=== PATIENT | female | born 1960 | race Caucasian/White ===

== ENCOUNTER 2020-01-29 19:43 | Emergency (ER) | payer BC, SELFPAY ==
--- NOTE | ~2020-01-29 | CT_ITS ---
EXAMINATION: CT abdomen pelvis w con EXAM DATE: 01/29/2020 20:45 INDICATION: Low abdominal pain, extends the rectum. TECHNIQUE: Spiral CT of the abdomen and pelvis was performed following intravenous injection of 100 m L Omnipaque 350. Axial, coronal and sagittal images were reviewed. The dose-length product (DLP) fo r this examination was 1521.90 mGy-cm. The exposure was tailored according to patient size (auto mA exposure control), and iterative reconstruction (ASIR) was used as additional dose reduction techniqu e. Comparison is made to prior examination from 04/24/2018. FINDINGS: There are bilateral adrenal gland nodules, larger on the right measuring 1.2 cm, unchanged and consistent with hemangiomas. Liver, spleen, pancreas are unremarkable. Cholelithiasis. Scattere d bilateral nephrolithiasis, larger stone burden on the left with superior calyceal stone or stones m easuring 11 mm in diameter. No ureteral stones or hydronephrosis. The uterus is not identified and h as likely been surgically resected. There are probably small regions of bilateral renal cortical scar ring. The bladder is unremarkable. There is no retroperitoneal or pelvic lymphadenopathy. There i s mild scattered arteriosclerotic disease. The appendix is not identified. There is mild to moderate descending and sigmoid colonic diverticulos is. There is suspected to be mild inflammation along the sigmoid colon, possible acute uncomplicated diverticulitis. The stomach and small bowel are unremarkable. There is expected amount of colonic s tool. No free intraperitoneal gas. The heart is normal in size. There are no pericardial or pleu ral effusions. The lung bases are unremarkable. There are no osteoblastic or osteolytic lesions joy ntified. Mild lumbar levoscoliosis. IMPRESSION: 1. Probable mild acute uncomplicated sigmoid diverticulitis. 2. Bilateral nephrolithiasis. 3. Adrenal adenomas. Reviewed, dictated and finalized at location A.
[2020-01-29 19:50] VITALS: BP 156/113; PULSE 72; RESP 18; TEMP 36.9; O2SAT 97
--- NOTE | 2020-01-29 19:54 | ED.ABDPAIN ---
HPI - Abdominal Pain General Chief Complaint: Abdominal Pain Stated Complaint: abd pain Time Seen by Provider: 01/29/20 19:46 History of Present Illness HPI narrative: Patient presents with lower abdominal pain for 2 days. Primarily in the lower area and then sharp in the rectal area. She has never had anything like this before. She was diagnosed with diverticulitis in the past. She has had several lithotripsies for kidney stones. She gauges her pain at 7 out of 10. She says she has no drug allergies, despite the codeine on the record. She has no nausea or vomiting. Nothing makes the pain worse. Her last stool was this morning and it was soft. No blood in the stool. Surgical history of hysterectomy, oophorectomy, , lithotripsies. She does not smoke cigarettes, drink alcohol, or do drugs. He has a history of hypertension. MD elicited complaint: abdominal pain Pertinent past history: diverticulitis Onset (ago): day(s) Pain Consistency: constant Location: suprapubic and other (Rectal) Severity: moderate Radiation: none Migration to: no migration Exacerbating factors: nothing Relieving factors: nothing Related Data Allergies Allergy/AdvReac Type Severity Reaction Status Date / Time levofloxacin AdvReac Intermediate Nausea Verified 01/29/20 19:53 codeine AdvReac Unknown Nausea Verified 01/29/20 19:53 Review of Systems Review of Systems: Narrative: CONSTITUTIONAL: Denies fever, chills, or sweats. EYES: Denies visual changes, redness, or discharge. ENT: Denies rhinorrhea, congestion, sore throat, or otalgia. CARDIOVASCULAR: Denies chest pain, palpitations, or edema. RESPIRATORY: Denies cough or dyspnea. GASTROINTESTINAL: She has abdominal pain, right nausea, vomiting, or diarrhea. GENITOURINARY: Denies dysuria or hematuria. SKIN: Denies rash or itching. MUSCULOSKELETAL: Denies back pain, joint pain, or myalgia. NEUROLOGIC: Denies headache, numbness, or weakness. All systems reviewed & are unremarkable except as noted in HPI and below PMFSH Past Medical History Medical History Hypertension Kidney stones Mixed hyperlipidemia Morbid obesity Surgical History Surgical History (Updated 01/29/20 @ 19:59 by Adenike Flower MD) History of hysterectomy History of oophorectomy Social History Social History (Updated 01/29/20 @ 19:59 by Adenike Flower MD) Smoking status: Former smoker Alcohol intake: never Substance use: never Exam Narrative: Exam Narrative: GENERAL: Well-appearing, well-nourished, and in no acute distress. Overweight HEAD: Normocephalic, atraumatic. EYES: PERRLA and EOMI. ENT: Nares clear, no rhinorrhea or epistaxis. Mucous membranes moist. NECK: Supple. CHEST: Clear to auscultation. No respiratory distress. HEART: Regular rate and rhythm. No murmur heard. Normal peripheral pulses. ABDOMEN: Soft, nontender, nondistended, normal active bowel sounds. EXTREMITIES: Normal range of motion. No edema. SKIN: Warm, dry, no rash. NEURO: No focal deficits. Alert and oriented x3. PSYCH: Normal mood and affect. Const: General: no acute distress and alert Orientation/consciousness: patient oriented x3 Course Reevaluation(s) Reevaluation #1: Went in the room to tell the patient about her diverticulitis, and the IV antibiotics for it. She said the pain medicine only helped a little I will give her some more. Date: 01/29/20 Time: 21:59 Reevaluation #2: The patient is allergic to Levaquin, she said it messed with her ankles. I can give a cephalosporin with Flagyl as an alternative. Date: 01/30/20 Time: 00:52 Vital Signs Vital signs: Vital Signs Temperature 98.5 F 01/29/20 19:50 Pulse Rate 72 01/29/20 19:50 Respiratory Rate 18 01/29/20 19:50 Blood Pressure 156/113 H 01/29/20 19:50 Pulse Oximetry 97 01/29/20 19:50 Temperature 98.5 F 01/29/20 19:50 Pulse Rate 72 01/29/20 19:50 Respiratory Rate 18 01/29/20 19:
[2020-01-29] MEDS: MORPHINE SULFATE 2 MG/ML INJ IV PUSH (20:04)
[2020-01-29] MEDS: SODIUM CHLORIDE 0.9% IV 1,000 ML 999 ML IV CONT (20:04)
[2020-01-29 20:09] LABS: Basophils Absolute Auto 0.1 K/mm3 (0.0-0.1); Basophils Percent Auto 0.7 % (0.2-1.2); Eosinophils Absolute Auto 0.2 K/mm3 (0-0.3); Eosinophils Percent Auto 2.5 % (0-4.4); Hematocrit 42.4 % (37.0-47.0); Immature Granulocyte Absolute 0.01 K/mm3 (0.00-0.031); Immature Granulocyte Percent A 0.1 % (0-0.5); Lymphocytes Absolute Auto 2.67 K/mm3 (0.9-3.2); Lymphocytes Percent Auto 29.5 % (18.3-44.2); Mean Corpuscular Hemoglobin 29.4 pg (26-34); Mean Corpuscular Volume 89.1 fl (80-100); Mean Platelet Volume 10.4 fl (7.4-10.4); Monocytes Absolute Auto 0.5 K/mm3 (0.1-0.6); Monocytes Percent Auto 5.3 % (2.6-8.5); Neutrophils Absolute Auto 5.6 K/mm3 (1.3-6.7); Neutrophils Percent Auto 61.9 % (45.5-73.1); Platelet Count Result 276 k/mm3 (150-375); Red Blood Count 4.76 M/mm3 (4.2-5.4); Red Cell Distribution Width 13.8 % (11.5-14.5); White Blood Count 9.1 K/mm3 (4.5-10.0)
[2020-01-29 20:21] LABS: Alanine Aminotransferase 24 U/L (4-35); Albumin Level 4.4 g/dL (3.5-5.1); Alkaline Phosphatase 85 U/L (38-126); Anion Gap 9 mmol/L (8-16); Aspartate Amino Transferase 27 U/L (14-36); Bilirubin,Total 0.5 mg/dL (0.2-1.3); Blood Urea Nitrogen 16 mg/dL (7-17); Calcium 9.3 mg/dL (8.4-10.2); Carbon Dioxide 27 mmol/L (22-30); Chloride 99 mmol/L (98-107); Estimated CRCL calculation 86 ml/min; Estimated Glomerular Filt Rate > 60; Glucose 213 mg/dL (65-105); Lipase 99 U/L (23-300); Potassium 3.8 mmol/L (3.4-5.0); Sodium 135 mmol/L (137-145)
[2020-01-29 21:53] LABS: Add Urine Microscopic? NO; Appearance Urine Clear (Clear); Bilirubin Urine Negative (Negative); Blood Urine Negative (Negative); Color Urine Straw (Yellow); Glucose Urine UA Negative (Negative); Ketones Urine Negative (Negative); Leukocyte Esterase Ur Negative LEU/UL (Negative); Nitrate Urine Negative (Negative); Protein Urine Negative (Negative); Urobilinogen Urine Negative mg/dL (<2.0)
[2020-01-29 21:55] LABS: Specific Grav Ur 1.047 (1.001-1.035)
[2020-01-29] MEDS: MORPHINE SULFATE 4 MG/ML INJ IV PUSH (22:24)
[2020-01-29] MEDS: metroNIDAZOLE 500 MG/ISO 100ML 500 MG/100 ML BAG 100 MG IVPB (22:24)
[2020-01-29 23:35] VITALS: BP 162/108; PULSE 87; RESP 19; O2SAT 98
[2020-01-30 00:56] VITALS: BP 149/109; PULSE 76; RESP 16; TEMP 36.4; O2SAT 98
== END 2020-01-30 00:57 | disposition home or self-care (01) ==
PROVIDERS: Emergency Provider Emergency Medicine; PCP Family Medicine
DX: K57.32 Diverticulitis of large intestine without perforation or abscess without bleeding (principal); R10.84 Generalized abdominal pain; I10 Essential (primary) hypertension; E78.2 Mixed hyperlipidemia; E66.01 Morbid (severe) obesity due to excess calories; Z68.41 Body mass index [BMI] 40.0-44.9, adult; D35.02 Benign neoplasm of left adrenal gland; D35.01 Benign neoplasm of right adrenal gland; N20.0 Calculus of kidney
CPT/HCPCS: 36415; 74177; 80053; 81003; 83690; 85025; 96361; 96365; 96368; 96375; 96376; 99284; J2270; J2543; J7030; Q9967

== ENCOUNTER 2020-10-10 07:34 | Outpatient (CLI) | payer BC, SELFPAY ==
[2020-10-10 08:01] LABS: Hematocrit 41.9 % (37.0-47.0); Hemoglobin 13.6 g/dL (12.0-15.0); Mean Corpuscular HGB Conc 32.5 g/dl (32-36); Mean Corpuscular Hemoglobin 29.4 pg (26-34); Mean Corpuscular Volume 90.7 fl (80-100); Mean Platelet Volume 10.1 fl (7.4-10.4); Platelet Count Result 241 k/mm3 (150-375); Red Blood Count 4.62 M/mm3 (4.2-5.4); Red Cell Distribution Width 14.2 % (11.5-14.5); White Blood Count 7.5 K/mm3 (4.5-10.0)
[2020-10-10 08:35] LABS: Alanine Aminotransferase 24 U/L (4-35); Alkaline Phosphatase 68 U/L (38-126); Anion Gap 5 mmol/L (8-16); Aspartate Amino Transferase 34 U/L (14-36); Bilirubin,Total 0.5 mg/dL (0.2-1.3); Blood Urea Nitrogen 16 mg/dL (7-17); Carbon Dioxide 34 mmol/L (22-30); Chloride 100 mmol/L (98-107); Cholesterol 155 mg/dL (0-200); Estimated Glomerular Filt Rate > 60; Glucose 158 mg/dL (65-105); HDL Direct 40 mg/dL; Potassium 4.3 mmol/L (3.4-5.0); Sodium 139 mmol/L (137-145); Triglycerides 243 mg/dL (<150)
[2020-10-10 08:42] LABS: Hemoglobin A1C 7.7 % (<5.7)
[2020-10-10 08:46] LABS: LDL Cholesterol Direct 75 mg/dL
== END 2020-10-10 07:35 | disposition home or self-care (01) ==
PROVIDERS: PCP Family Medicine; Visit Provider Family Medicine
DX: I10 Essential (primary) hypertension (principal); R73.9 Hyperglycemia, unspecified; E78.2 Mixed hyperlipidemia; Z13.220 Encounter for screening for lipoid disorders
CPT/HCPCS: 36415; 80048; 80061; 80076; 83036; 85027

== ENCOUNTER 2020-10-21 16:37 | Outpatient (CLI) | payer BC, SELFPAY ==
--- NOTE | ~2020-10-21 | US_ITS ---
EXAMINATION: US art doppler w press LE DATE: 10/21/2020 12:22 INDICATION: Right third toe discoloration. TECHNIQUE: Segmental pressures and plethysmographic and Doppler waveforms of the brachial and lower e xtremity arteries were obtained. COMPARISON: None. FINDINGS: Right and left brachial artery pressures of 134 mm Hg and 140 mm Hg, respectively, are concordant (no rmal difference <= 30 mmHg). The right high-thigh pressure index is 1.24 (normal > 1.2). The right ankle-brachial index (SHIRLEY) is 1 .17 (normal >= 0.9-1.0). The right great toe-brachial index (TBI) is 0.72 (normal >= 0.65). Arterial Doppler waveforms are at least triphasic in common femoral artery and biphasic from superficial femor al artery to the ankle. The left high-thigh pressure index is 1.21. The left SHIRLEY is 1.09. The left TBI is 0.92. Arterial Dopp ler waveforms are at least triphasic in common femoral artery and biphasic from superficial femoral a rtery to the ankle. IMPRESSION: 1. No significant arterial occlusive disease. Reviewed, dictated and finalized at location A.
[2020-10-21 17:01] LABS: Basophils Percent Auto 0.5 % (0.2-1.2); Eosinophils Absolute Auto 0.3 K/mm3 (0-0.3); Hematocrit 42.6 % (37.0-47.0); Hemoglobin 13.8 g/dL (12.0-15.0); Immature Granulocyte Absolute 0.02 K/mm3 (0.00-0.031); Immature Granulocyte Percent A 0.2 % (0-0.5); Lymphocytes Absolute Auto 2.06 K/mm3 (0.9-3.2); Lymphocytes Percent Auto 24.6 % (18.3-44.2); Mean Corpuscular HGB Conc 32.4 g/dl (32-36); Mean Corpuscular Hemoglobin 29.4 pg (26-34); Mean Corpuscular Volume 90.6 fl (80-100); Monocytes Absolute Auto 0.4 K/mm3 (0.1-0.6); Monocytes Percent Auto 5.1 % (2.6-8.5); Neutrophils Absolute Auto 5.6 K/mm3 (1.3-6.7); Neutrophils Percent Auto 66.6 % (45.5-73.1); Platelet Count Result 258 k/mm3 (150-375); Red Cell Distribution Width 13.9 % (11.5-14.5); White Blood Count 8.4 K/mm3 (4.5-10.0)
[2020-10-21 17:14] LABS: Anion Gap 7 mmol/L (8-16); Blood Urea Nitrogen 14 mg/dL (7-17); CRP 1.3 mg/dL (<1.0); Calcium 9.3 mg/dL (8.4-10.2); Carbon Dioxide 33 mmol/L (22-30); Chloride 100 mmol/L (98-107); Estimated Glomerular Filt Rate > 60; Glucose 207 mg/dL (65-105); Potassium 3.7 mmol/L (3.4-5.0); Rheumatoid Factor < 8.6 IU/ML (<12); Sodium 140 mmol/L (137-145)
[2020-10-21 17:35] LABS: Erythrocyte Sedimentation Rate 27 mm/hr (0-20)
== END 2020-10-21 16:38 | disposition home or self-care (01) ==
PROVIDERS: PCP Family Medicine; Visit Provider Nurse Practitioner Family
DX: L81.9 Disorder of pigmentation, unspecified (principal); Z68.41 Body mass index [BMI] 40.0-44.9, adult
CPT/HCPCS: 36415; 80048; 85025; 85652; 86038; 86140; 86430; 93923

== ENCOUNTER 2021-02-01 10:24 | Outpatient (CLI) | payer BC, SELFPAY ==
--- NOTE | ~2021-02-01 | US_ITS ---
US abdomen complete DATE: 02/01/2021 11:15 INDICATION: Cholelithiasis TECHNIQUE: Real-time imaging and Doppler analysis of the abdomen COMPARISON: 02/18/2020 CT abdomen pelvis FINDINGS: There is hepatic steatosis. Normal hepatopedal portal venous flow direction. No hepatic or pancreatic space-occupying mass lesion is evident. There is an approximately to centimeter gallstone with posterior shadowing. No gallbladder wall thick ening. Negative sonographic Cotton's sign. The common bile duct measures 5 mm, within normal range. No splenomegaly. No renal mass lesion or hydronephrosis is detected. Normal caliber of the abdominal aorta. Inferior vena cava is unremarkable. IMPRESSION: Cholelithiasis Hepatic steatosis Reviewed, dictated and finalized at [facility]. Reviewed, dictated and finalized at location A.
== END 2021-02-01 10:25 | disposition home or self-care (01) ==
LOC: ANHIMG 10:28
PROVIDERS: PCP Family Medicine; Visit Provider Nurse Practitioner Family
DX: K80.20 Calculus of gallbladder without cholecystitis without obstruction (principal); R10.9 Unspecified abdominal pain; K76.0 Fatty (change of) liver, not elsewhere classified
CPT/HCPCS: 76700

== ENCOUNTER 2021-02-10 04:26 | Day surgery (SDC) | payer BC, SELFPAY ==
[2021-02-01 14:49] VITALS: BMI 38.7
--- NOTE | 2021-02-10 08:35 | WPDANESEPPF ---
Anes - Initial Pre Proc Eval Procedure: Operation Date: 02/10/21 10:15 Proposed Procedures p Screening Colonoscopy - Federico Jack MD Date/Time: 02/10/21 08:35 Surgeon: Federico Jack MD Pre Op Diagnosis: neoplasm screening Patient Data Age: 60 Gender: F Height: 1.68 m Weight: 109 kg Allergies Allergy/AdvReac Type Severity Reaction Status Date / Time levofloxacin AdvReac Intermediate Nausea Verified 02/10/21 09:03 codeine AdvReac Unknown Nausea Verified 02/10/21 09:03 Home Medications Medication Instructions Recorded Confirmed Type acetaminophen 500 mg tablet 500 mg PO Q6H PRN 09/27/20 02/01/21 History benazepril 10 mg tablet 10 mg PO DAILY #90 tablet 01/05/21 02/01/21 Rx gabapentin 300 mg capsule 300 mg PO DAILY #30 cap 01/05/21 02/01/21 Rx atorvastatin 10 mg PO DAILY 02/01/21 02/01/21 History escitalopram oxalate 10 mg PO DAILY 02/01/21 02/01/21 History meloxicam 7.5 mg PO DAILY 02/01/21 02/01/21 History tizanidine 4 mg PO HS PRN 02/01/21 02/01/21 History tramadol 50 mg PO HS PRN 02/01/21 02/01/21 History metoprolol succinate 100 mg 200 mg PO DAILY #180 tablet 02/05/21 02/10/21 Rx tablet,extended release 24 hr Patient hx anesthesia problems: none Family hx anesthesia problems: none PMFSH Past Medical History Medical History BMI 39.0-39.9,adult BMI 40.0-44.9, adult BMI greater than 40 Candidiasis of breast Dermatitis of external ear Hypertension Kidney stones Mixed hyperlipidemia Morbid obesity Screen for colon cancer Screening for breast cancer Surgical History Surgical History History of hysterectomy History of oophorectomy Family History Family History Father Family history of lung cancer Family history of coronary artery disease Mother Family history of malignant neoplasm of breast in first degree relative Breast cancer Osteoporosis Social History Social History Smoking packs per day: 0.75 Smoking cigarettes per day: 15.0 Years smoked: 30 Smoking pack-years: 22.50 Smoking status: Former smoker Tobacco type: cigarettes Second hand tobacco smoke exposure: No Alcohol intake: never Substance use: never Substance use type: does not use Living arrangements: with family 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 Questions were solicited and answers provided to the satisfaction of the patient/family/POA.
[2021-02-10 08:54] VITALS: BP 133/65; PULSE 56; RESP 18; TEMP 36.9; O2SAT 94
[2021-02-10] MEDS: LACTATED RINGERS 1,000 ML 150 ML IV CONT (09:17)
--- NOTE | 2021-02-10 09:54 | PM.HPGS ---
History of Present Illness History of Present Illness Consent: Risks, benefits, and alternatives have been discussed and questions answered. Patient agrees to proceed with procedure. Chief complaint: neoplasm screening Narrative: Robyn Abraham is a 60 year old female with last colonoscopy ~ 15 years ago. Review of Systems Constitutional: Constitutional: Denies headache(s) and Denies weakness Eyes: Eyes: Denies blurry vision ENT: Reports Normal hearing present, Denies headache(s) and Denies neck pain Cardiovascular: Cardiovascular: Denies chest pain and Denies dyspnea Respiratory: Respiratory: Denies dyspnea Gastrointestinal: Gastrointestinal: Reports no additional gastrointestinal complaints Genitourinary: Genitourinary: Denies dysuria Musculoskeletal: Musculoskeletal: Denies neck pain Integumentary/Breasts: Skin/Breast: Denies dry skin Neurologic: Reports Normal hearing present, Denies headache(s) and Denies weakness Psychiatric: Psychiatric: Denies anxiety Endocrine: Endocrine: Denies change in body appearance Hematologic/Lymphatic: Hematologic/Lymphatic: Denies easy bleeding Allergic/Immunologic: Allergic/Immunologic: Denies urticaria PMFSH Past Medical History Medical History BMI 39.0-39.9,adult BMI 40.0-44.9, adult BMI greater than 40 Candidiasis of breast Dermatitis of external ear Hypertension Kidney stones Mixed hyperlipidemia Morbid obesity Screen for colon cancer Screening for breast cancer Surgical History Surgical History History of hysterectomy History of oophorectomy Family History Family History Father Family history of lung cancer Family history of coronary artery disease Mother Family history of malignant neoplasm of breast in first degree relative Breast cancer Osteoporosis Social History Social History Smoking packs per day: 0.75 Smoking cigarettes per day: 15.0 Years smoked: 30 Smoking pack-years: 22.50 Smoking status: Former smoker Tobacco type: cigarettes Second hand tobacco smoke exposure: No Alcohol intake: never Substance use: never Substance use type: does not use Living arrangements: with family 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[employer] Gender identity (if verbalized by the patient): Female Spiritual care concerns: No Meds Home Medications and Allergies Home Medications Medication Instructions Recorded Confirmed Type acetaminophen 500 mg tablet 500 mg PO Q6H PRN 09/27/20 02/01/21 History benazepril 10 mg tablet 10 mg PO DAILY #90 tablet 01/05/21 02/01/21 Rx gabapentin 300 mg capsule 300 mg PO DAILY #30 cap 01/05/21 02/01/21 Rx atorvastatin 10 mg PO DAILY 02/01/21 02/01/21 History escitalopram oxalate 10 mg PO DAILY 02/01/21 02/01/21 History meloxicam 7.5 mg PO DAILY 02/01/21 02/01/21 History tizanidine 4 mg PO HS PRN 02/01/21 02/01/21 History tramadol 50 mg PO HS PRN 02/01/21 02/01/21 History metoprolol succinate 100 mg 200 mg PO DAILY #180 tablet 02/05/21 02/10/21 Rx tablet,extended release 24 hr Allergies Allergy/AdvReac Type Severity Reaction Status Date / Time levofloxacin AdvReac Intermediate Nausea Verified 02/10/21 09:03 codeine AdvReac Unknown Nausea Verified 02/10/21 09:03 Vital Signs Vital Signs - 24 hr 02/10/21 08:54 Temperature 98.4 F Pulse Rate 56 L Respiratory Rate 18 Blood Pressure 133/65 Pulse Oximetry 94 Exam Const: General: comfortable and no acute distress HENMT: General nose exam: Normal nares present Eyes: General: appearance normal, both eyes and all related structures Neck: Neck: no JVD Resp: Auscultation: clear to auscultation bilaterally Cardio: Rate: regular rate Rhythm: regular rhythm GI:
[2021-02-10 10:18] VITALS: BP 130/69; PULSE 62; RESP 17; O2SAT 96
[2021-02-10 10:28] VITALS: BP 130/88; PULSE 60; RESP 20; O2SAT 96
[2021-02-10 10:38] VITALS: BP 149/87; PULSE 56; RESP 20; O2SAT 96
== END 2021-02-10 10:52 | disposition home or self-care (01) ==
PROVIDERS: PCP Family Medicine; Visit Provider Internal Medicine Gastroenterology
PROC: 0DJD8ZZ Inspection of Lower Intestinal Tract, Via Natural or Artificial Opening Endoscopic (ICD-10-PCS; CPT 45378; principal; 2021-02-10 10:15)
DX: Z12.11 Encounter for screening for malignant neoplasm of colon (principal); D12.2 Benign neoplasm of ascending colon; K57.30 Diverticulosis of large intestine without perforation or abscess without bleeding; I10 Essential (primary) hypertension; E78.5 Hyperlipidemia, unspecified; E66.01 Morbid (severe) obesity due to excess calories; Z87.442 Personal history of urinary calculi; Z90.710 Acquired absence of both cervix and uterus; Z87.891 Personal history of nicotine dependence
CPT/HCPCS: 45385; 45380; 88305; J2704; J7120

== ENCOUNTER 2021-02-14 13:12 | Outpatient (CLI) | payer BC, SELFPAY ==
--- NOTE | ~2021-02-14 | XR_ITS ---
XR abdomen/kub 1V DATE: 02/14/2021 13:38 INDICATION: Left sided kidney stone TECHNIQUE: AP projection, 2 views COMPARISON: 01/29/2020 CT abdomen pelvis 10/28/2018 KUB FINDINGS: Again noted are multiple calcified calculi of the left kidney, the largest overlying the up per pole, measuring approximately 7.7 x 12.5 mm, another calcified calculus overlying the lower pole measuring approximately 3.5 x 7 mm. Smaller left renal calcified calculi and several possible very hatch btle faintly calcified right renal calculi are suggested. Noncontrast CT examination of the urinary t racts would be more sensitive and accurate for detection of of kidney stones. The psoas shadows are intact. No visceromegaly is evident. Multiple bilateral calcified pelvic phlebo liths. There is no evidence of bowel obstruction. The lung bases are clear. No pleural effusion. Diffuse osteopenia. IMPRESSION: Bilateral nephrolithiasis Reviewed, dictated and finalized at [facility]. Reviewed, dictated and finalized at location A. IMPRESSION: Bilateral nephrolithiasis
== END 2021-02-14 13:13 | disposition home or self-care (01) ==
PROVIDERS: PCP Family Medicine; Visit Provider Nurse Practitioner Adult Health
DX: N20.0 Calculus of kidney (principal)
CPT/HCPCS: 74018

== ENCOUNTER 2021-03-03 01:01 | Day surgery (SDC) | payer BC, SELFPAY ==
[2021-03-01 08:19] VITALS: BMI 39.1
[2021-03-03] VITALS (9 sets, daily range): BP systolic 109–167; BP diastolic 70–93; PULSE 57–70; RESP 13–18; TEMP 36.7–37.3; O2SAT 92–100
--- NOTE | ~2021-03-03 | XR_ITS ---
EXAMINATION: XR abdomen/kub 1V EXAM DATE: 03/03/2021 09:14 INDICATION: Left-sided lithotripsy preoperative. TECHNIQUE: Frontal projection(s) of the abdomen for interpretation. Comparison is made to prior exami nation from 10/28/2018. FINDINGS: Multiple left-sided kidney stones measuring up to about 1.4 cm. Nonobstructive bowel gas p attern. Mild lumbar levoscoliosis. There is no organomegaly. Advanced L4-5 facet arthropathy. IMPRESSION: 1. Sizable left nephrolithiasis. Reviewed, dictated and finalized at location A.
--- NOTE | 2021-03-03 07:09 | WPDHPUPDATE1 ---
History and Physical Update Update Date/Time: 03/03/21 07:09 History and Physical has been reviewed, including an updated exam of the patient. There are NO changes in the patient's condition. Risks, benefits, and alternatives have been discussed and questions answered. Patient agrees to proceed with procedure.
--- NOTE | 2021-03-03 07:10 | WPDANESEPPF ---
Anes - Initial Pre Proc Eval Procedure: Operation Date: 03/03/21 11:00 Proposed Procedures p Left Extracorporeal Shock Wave Lithotripsy - Abdelrahman Chan MD Date/Time: 03/03/21 07:10 Surgeon: Abdelrahman Chan MD Pre Op Diagnosis: Lt Kidney Stone Patient Data Age: 61 Gender: F Height: 1.68 m Weight: 110 kg Allergies Allergy/AdvReac Type Severity Reaction Status Date / Time codeine AdvReac Intermediate Nausea Verified 03/03/21 09:46 levofloxacin AdvReac Intermediate ACHILLES Verified 03/03/21 09:46 TENDON INJURY Home Medications Medication Instructions Recorded Confirmed Type acetaminophen 500 mg tablet 500 mg PO Q6H PRN 09/27/20 03/03/21 History atorvastatin 10 mg PO HS 02/01/21 03/03/21 History escitalopram oxalate 10 mg PO HS 02/01/21 03/03/21 History meloxicam 7.5 mg PO HS 02/01/21 03/03/21 History tramadol 50 mg PO HS PRN 02/01/21 03/01/21 History benazepril 10 mg PO HS 03/01/21 03/03/21 History gabapentin 300 mg PO HS 03/01/21 03/03/21 History metoprolol succinate 200 mg PO HS 03/01/21 03/03/21 History tizanidine 4 mg PO HS 03/01/21 03/03/21 History Patient hx anesthesia problems: none Family hx anesthesia problems: none PMFSH Past Medical History Medical History (Updated 03/03/21 @ 07:11 by Josr Mcmanus, ) BMI 39.0-39.9,adult BMI 40.0-44.9, adult BMI greater than 40 Candidiasis of breast Dermatitis of external ear Hypertension Kidney stones Mixed hyperlipidemia Morbid obesity PONV (postoperative nausea and vomiting) Screen for colon cancer Screening for breast cancer Surgical History Surgical History History of hysterectomy History of oophorectomy Family History Family History Father Family history of lung cancer Family history of coronary artery disease Mother Family history of malignant neoplasm of breast in first degree relative Breast cancer Osteoporosis Social History Social History (Updated 03/01/21 @ 09:03 by Shayy Oviedo RN) Smoking packs per day: 1 Smoking cigarettes per day: 20.0 Years smoked: 30 Smoking pack-years: 30.00 Smoking status: Former smoker Tobacco type: cigarettes Second hand tobacco smoke exposure: No Smoking end date: 02/22/09 Alcohol intake: never Substance use: never Substance use type: does not use Living arrangements: with family 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[employer] Gender identity (if verbalized by the patient): Female Spiritual care concerns: No Agree to blood products: Yes Anes - Eval Final PreProcedure Day of Procedure 03/03/21 07:10 Patient weight: obese Heart: regular rate and rhythm Lungs: clear to auscultation and normal air movement Airway: Mallampati scale class II Neurological: alert and oriented Last oral intake: >/= 8 hours ASA classification: III Emergent: no Anesthetic plan: proceed Anesthesia type and monitoring: general LMA and standard monitoring Informed Consent: The patient's anesthetic plan and its attendant risks and benefits were discussed with the patient/family/POA. Questions were solicited and answers provided to the satisfaction of the patient/family/POA.
[2021-03-03 09:55] LABS: Add Urine Microscopic? YES; Appearance Urine Cloudy (Clear); Bacteria Urine Trace /hpf; Bilirubin Urine Negative (Negative); Blood Urine 2+ (Negative); Color Urine Yellow (Yellow); Glucose Urine UA Negative (Negative); Ketones Urine Negative (Negative); Leukocyte Esterase Ur Negative LEU/UL (NEGATIVE); Mucus Urine Few /lpf; Nitrate Urine Negative (Negative); Protein Urine Negative (Negative); Squamous Epithelial Cell Urine Many /hpf (Few); Urobilinogen Urine Negative mg/dL (<2.0)
[2021-03-03] MEDS: LACTATED RINGERS 1,000 ML 30 ML IV CONT (10:14)
[2021-03-03 10:35] LABS: INR 0.9
[2021-03-03 10:36] LABS: Partial Thromboplastin Time 26.4 SECONDS (22.3-36.8)
[2021-03-03] MEDS: ceFAZolin 2 GM/D5W 50 ML 2 GM/50 ML BAG IVPB (11:27)
--- NOTE | 2021-03-03 11:44 | W.PM.PROC2 ---
Procedure Note - Detailed Date of Procedure 03/03/21 Pre-op Diagnosis Lt Kidney Stone Post-op Diagnosis same Procedure Performed Left ESWL Surgeon Abdelrahman Chan MD Anesthesia general Description of Procedure The patient was brought to the operative suite where she was placed in the supine position on the Dornier lithotripsy table. The focal point of the lithotripter was placed at a 13mm left upper pole renal calculus. A total of 2500 shocks were delivered at a power setting of 4. There appeared to be good fragmentation of the stone. The patient tolerated the procedure well and was taken to the recovery room in good condition. Estimated Blood Loss 0 Drains No Packing No Pathology none sent Complications No immediate complications Condition stable Disposition PACU
== END 2021-03-03 14:38 | disposition home or self-care (01) ==
PROVIDERS: PCP Family Medicine; Visit Provider Urology
PROC: (CPT 50590; principal; 2021-03-03 11:00)
DX: N20.0 Calculus of kidney (principal); I10 Essential (primary) hypertension; E78.2 Mixed hyperlipidemia; E66.9 Obesity, unspecified; Z68.39 Body mass index [BMI] 39.0-39.9, adult; Z87.891 Personal history of nicotine dependence
CPT/HCPCS: 50590; 36415; 74018; 81001; 85610; 85730; J0461; J0690; J2405; J2704; J7120

== ENCOUNTER 2021-03-06 16:19 | Emergency (ER) | payer BC, SELFPAY ==
--- NOTE | ~2021-03-06 | CT_ITS ---
EXAMINATION: CT abdomen pelvis wo con DATE: 03/06/2021 18:20 INDICATION: Left flank pain, dysuria. Recent lithotripsy. TECHNIQUE: Computed tomography (CT) of the abdomen and pelvis was performed without intravenous contr ast. Automated exposure control and iterative reconstruction technique were employed. Exam dose: 846 .48 mGy-cm total exam DLP. COMPARISON: 03/03/2021 KUB 01/29/2020 CT abdomen pelvis with IV contrast material FINDINGS: Lingular calcified granuloma. The lung bases are clear of infiltrate or consolidation. Heart size is within normal range. No pericardial or pleural effusion. Diffuse hepatic steatosis. 1.7 cm peripherally calcified gallstone. No pericholecystic fluid or fat s tranding. No bile duct or pancreatic duct dilatation. No pancreatic mass lesion or calcification. There are calcified splenic granulomas. Normal splenic size. Bilateral adrenal masses measuring up to 13 mm on the left and 9 mm on the right. There is no known m alignancy, these are most likely benign adrenal adenomas. There is bilateral nephrolithiasis, with larger and more numerous stones on the left. There is a small proximal left ureteral calculus or contiguous small calculi, with mild to moderate l eft hydronephrosis. No right ureteral calculus or right-sided hydroureteronephrosis. There is normal caliber of the abdominal aorta, with atherosclerotic calcification of the aorta as we ll as iliac and femoral arteries. No abdominal aortic aneurysm. No intraperitoneal or retroperitoneal or pelvic mass lesion or lymphadenopathy is evident. The urinary bladder is unremarkable. Status post hysterectomy. No evidence of appendicitis. There are multiple diverticula of the sigmoid and descending colon; no CT evidence of diverticulitis. No bowel obstruction, bowel wall thickening, pneumatosis or intraperitoneal free air. Small fat-containing umbilical hernia. Included skeletal structures are unremarkable. IMPRESSION: 1 or more small calculi of the proximal left ureter with mild to moderate left hydrouret eronephrosis Bilateral nephrolithiasis, greater on the left Cholelithiasis Hepatic steatosis Reviewed, dictated and finalized at [facility]. Reviewed, dictated and finalized at location A. IMPRESSION: 1 or more small calculi of the proximal left ureter with mild to m oderate left hydroureteronephrosis Bilateral nephrolithiasis, greater on the left Cholelithiasis Hepatic steatosis
[2021-03-06 16:33] VITALS: BP 160/81; PULSE 59; RESP 17; TEMP 35.9; O2SAT 96
[2021-03-06 17:11] LABS: Basophils Absolute Auto 0.1 K/mm3 (0.0-0.1); Basophils Percent Auto 0.6 % (0.2-1.2); Eosinophils Absolute Auto 0.2 K/mm3 (0-0.3); Eosinophils Percent Auto 1.8 % (0-4.4); Hematocrit 42.2 % (37.0-47.0); Hemoglobin 13.5 g/dL (12.0-15.0); Immature Granulocyte Absolute 0.01 K/mm3 (0.00-0.031); Immature Granulocyte Percent A 0.1 % (0-0.5); Lymphocytes Absolute Auto 2.18 K/mm3 (0.9-3.2); Lymphocytes Percent Auto 24.7 % (18.3-44.2); Mean Corpuscular Hemoglobin 28.2 pg (26-34); Mean Corpuscular Volume 88.3 fl (80-100); Mean Platelet Volume 10.3 fl (7.4-10.4); Monocytes Absolute Auto 0.5 K/mm3 (0.1-0.6); Monocytes Percent Auto 5.4 % (2.6-8.5); Neutrophils Absolute Auto 5.9 K/mm3 (1.3-6.7); Neutrophils Percent Auto 67.4 % (45.5-73.1); Platelet Count Result 241 k/mm3 (150-375); Red Blood Count 4.78 M/mm3 (4.2-5.4); Red Cell Distribution Width 13.6 % (11.5-14.5); White Blood Count 8.8 K/mm3 (4.5-10.0)
[2021-03-06 17:15] LABS: Add Urine Microscopic? YES; Appearance Urine Clear (Clear); Bilirubin Urine Negative (Negative); Blood Urine 3+ (Negative); Color Urine Yellow (Yellow); Glucose Urine UA Negative (Negative); Ketones Urine Negative (Negative); Leukocyte Esterase Ur Trace LEU/UL (Negative); Mucus Urine Rare /lpf; Nitrate Urine Negative (Negative); Protein Urine 1+ mg/dL (Negative); RBC Urine >75 /hpf (0-2); Specific Grav Ur 1.013 (1.001-1.035); Urobilinogen Urine Negative mg/dL (<2.0); WBC Urine 0-3 /hpf
--- NOTE | 2021-03-06 17:54 | ED.BACK ---
HPI - Back Pain/Injury General Chief Complaint: Back Pain/Injury Stated Complaint: left flank pain post lithotripsy Time Seen by Provider: 03/06/21 17:36 Source: patient Mode of arrival: ambulatory Limitations: no limitations History of Present Illness HPI Narrative: This is a 61 year old female that presents to the ER for left sided flank pain since this afternoon. Reports the pain has been sharp and constant. Reports she had a lithotripsy on Saturday (03/03) with Dr. Chan. She has been taking her prescribed pain medication with little relief. Reports today she has had some difficulty urinating. Does report blood in the urine. Denies fever or vomiting. Related Data Home Medications Medication Instructions Recorded Confirmed acetaminophen 500 mg tablet 500 mg PO Q6H PRN 09/27/20 03/03/21 meloxicam 7.5 mg PO HS 02/01/21 03/03/21 tramadol 50 mg PO HS PRN 02/01/21 03/01/21 benazepril 10 mg PO HS 03/01/21 03/03/21 gabapentin 300 mg PO HS 03/01/21 03/03/21 metoprolol succinate 200 mg PO HS 03/01/21 03/03/21 tizanidine 4 mg PO HS 03/01/21 03/03/21 Allergies Allergy/AdvReac Type Severity Reaction Status Date / Time codeine AdvReac Intermediate Nausea Verified 03/06/21 18:10 levofloxacin AdvReac Intermediate ACHILLES Verified 03/06/21 18:10 TENDON INJURY Review of Systems Review of Systems: CONSTITUTIONAL: Denies fever GASTROINTESTINAL: Denies abdominal pain, nausea, vomiting GENITOURINARY: Reports dysuria and hematuria. All systems reviewed & are unremarkable except as noted in HPI and below [facility] Past Medical History Medical History (Updated 03/06/21 @ 20:52 by Rachel Guo PA-C) BMI 39.0-39.9,adult BMI 40.0-44.9, adult BMI greater than 40 Candidiasis of breast Dermatitis of external ear Hypertension Kidney stones Mixed hyperlipidemia Morbid obesity PONV (postoperative nausea and vomiting) Screen for colon cancer Screening for breast cancer Surgical History Surgical History History of hysterectomy History of oophorectomy Family History Family History Father Family history of lung cancer Family history of coronary artery disease Mother Family history of malignant neoplasm of breast in first degree relative Breast cancer Osteoporosis Social History Social History (Updated 03/01/21 @ 09:03 by Shayy Oviedo RN) Smoking packs per day: 1 Smoking cigarettes per day: 20.0 Years smoked: 30 Smoking pack-years: 30.00 Smoking status: Former smoker Tobacco type: cigarettes Second hand tobacco smoke exposure: No Smoking end date: 02/22/09 Alcohol intake: never Substance use: never Substance use type: does not use 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 HEAD: Normocephalic, atraumatic. EYES: EOMI. CHEST: Clear to auscultation. No respiratory distress. No wheezes rales or rhonchi HEART: Regular rate and rhythm. No murmur heard. Normal peripheral pulses. ABDOMEN: Soft, nontender, nondistended, normal active bowel sounds. No CVA tenderness EXTREMITIES: Normal range of motion. No edema. SKIN: Warm, dry, no rash. NEURO: No focal deficits. Alert and oriented x3. PSYCH: Normal mood and affect Course Consultations Consultation #1: Spoke with Dr. Nevarez about patient and workup. Okay with a dose of Toradol and d/c home if pain is controlled. Date: 03/06/21 Time: 20:00 Vital Signs Vital signs: Vital Signs Temperature 96.7 F L 03/06/21 16:33 Pulse Rate 59 L 03/06/21 16:33 Respiratory Rate 17 03/06/21 16:33 Blood Pressure 160/81 H 03/06/21 16:33 Pulse Oximetry 96 03/06/21 16:33 [place]
[2021-03-06] MEDS: ONDANSETRON INJ 4 MG/2 ML VIAL IV PUSH (18:01)
[2021-03-06] MEDS: MORPHINE SULFATE (*CRX) 4 MG/ML INJ IV PUSH (18:01)
[2021-03-06 18:11] LABS: Anion Gap 10 mmol/L (8-16); Blood Urea Nitrogen 16 mg/dL (7-17); Calcium 8.9 mg/dL (8.4-10.2); Carbon Dioxide 28 mmol/L (22-30); Chloride 100 mmol/L (98-107); Estimated CRCL calculation 81 ml/min; Estimated Glomerular Filt Rate > 60; Glucose 131 mg/dL (65-110); Potassium 3.6 mmol/L (3.4-5.0); Sodium 138 mmol/L (137-145)
--- NOTE | 2021-03-06 18:13 | PC.NURSE ---
Pt to CT.
[2021-03-06 18:27] VITALS: BP 128/66; PULSE 88; RESP 18; O2SAT 95
[2021-03-06] MEDS: MORPHINE SULFATE (*CRX) 2 MG/ML INJ IV PUSH (19:35)
[2021-03-06] MEDS: SODIUM CHLORIDE 0.9% IV 500 ML 999 ML IV CONT (19:36)
[2021-03-06] MEDS: KETOROLAC 30 MG/ML VIAL (*BKC) IV PUSH (20:25)
[2021-03-06 21:24] VITALS: BP 130/78; PULSE 88; RESP 18; O2SAT 98
== END 2021-03-06 21:24 | disposition home or self-care (01) ==
PROVIDERS: Emergency Medicine; Emergency Provider Family Medicine; PCP Family Medicine
DX: N20.1 Calculus of ureter (principal); I10 Essential (primary) hypertension; E78.2 Mixed hyperlipidemia; E66.01 Morbid (severe) obesity due to excess calories; Z98.890 Other specified postprocedural states; Z87.442 Personal history of urinary calculi; Z87.891 Personal history of nicotine dependence
CPT/HCPCS: 36415; 74176; 80048; 81001; 85025; 96361; 96365; 96375; 96376; 99284; J0131; J1885; J2270; J2405; J7040

== ENCOUNTER 2021-03-08 14:13 | Observation (INO) | payer BC, SELFPAY ==
[2021-03-08] VITALS (11 sets, daily range): BP systolic 139–172; BP diastolic 77–91; PULSE 57–66; RESP 18–20; O2SAT 89–98; BMI 42.5
--- NOTE | ~2021-03-08 | XR_ITS ---
EXAMINATION: XR retrograde pyelo w/stent LT EXAM DATE: 03/09/2021 12:13 INDICATION: Left flank pain. TECHNIQUE: Fluoroscopy used during XR retrograde pyelo w/stent LT performed by Dr. Abdelrahman Chan MD, urologist. The radiologist Kelvin Sam M.D. dictating this report of the image(s) available wa s not present for the procedure. Total fluoroscopic time of 78 seconds. The DAP for this procedure was 1962 radcm2. A total of 5 images sent to PACS from the exam. FINDINGS: Small left ureteral stone seen on recent CT difficult to visualize. A left-sided double-J ureteral stent was placed. Correlate with procedure note. IMPRESSION: Left ureteral stent in position. Reviewed, dictated and finalized at location [facility].
--- NOTE | ~2021-03-08 | CT_ITS ---
EXAMINATION: CT abdomen pelvis wo con DATE: 03/08/2021 19:54 INDICATION: Left flank pain for 2 weeks. Nausea. TECHNIQUE: Computed tomography (CT) of the abdomen and pelvis was performed without intravenous contr ast. Automated exposure control and iterative reconstruction technique were employed. Exam dose: 921 .66 mGy-cm total exam DLP. COMPARISON: 03/06/2021 CT abdomen pelvis FINDINGS: The lung bases are clear. Borderline heart size. No pericardial or pleural effusion. There is a 1.7 cm gallstone. There is diffuse hepatic steatosis with minimal cholecystic sparing. No hepatic, splenic, pancreatic space-occupying mass lesion. Bilateral small adrenal masses; these are likely adenomas if there is no known malignancy. Bilateral nephrolithiasis. There is prominent left hydronephrosis due to an approximately 4 mm wide 12 mm vertical dimension pro ximal left ureteral calculus at the L3-4 level. There is perinephric stranding and thickening of the anterior and posterior pararenal fascia. The urinary bladder is unremarkable. Status post hysterectomy. There is atherosclerotic calcification of the abdominal aorta. No abdominal aortic aneurysm. No intraperitoneal or retroperitoneal or pelvic mass lesion or adenopathy or ascites. There is colonic diverticulosis; no CT evidence of diverticulitis. No bowel obstruction, bowel wall t hickening, pneumatosis or intraperitoneal free air. Small fat-containing umbilical hernia. No suspicious osteolytic or osteoblastic lesions. IMPRESSION: Prominent left hydroureteronephrosis secondary to 4 x 12 mm calculus of L3-4 level Bilateral nephrolithiasis Cholelithiasis Hepatic steatosis Probable bilateral small adrenal adenomas Status post hysterectomy Colonic diverticulosis Reviewed, dictated and finalized at [facility]. Reviewed, dictated and finalized at location [facility]. IMPRESSION: Prominent left hydroureteronephrosis secondary to 4 x 12 mm calcul us of L3-4 level Bilateral nephrolithiasis Cholelithiasis Hepatic steatosis Probable bilateral small adrenal adenomas Status post hysterectomy Colonic diverticulosis
[2021-03-08] MEDS: ONDANSETRON INJ 4 MG/2 ML VIAL IV PUSH (17:56)
[2021-03-08] MEDS: SODIUM CHLORIDE 0.9% IV 1,000 ML 150 ML IV CONT (17:56)
[2021-03-08 18:10] LABS: Add Urine Microscopic? YES; Appearance Urine Clear (Clear); Bilirubin Urine Negative (Negative); Blood Urine 3+ (Negative); Color Urine Yellow (Yellow); Glucose Urine UA Negative (Negative); Ketones Urine Negative (Negative); Leukocyte Esterase Ur Negative LEU/UL (Negative); Mucus Urine Rare /lpf; Nitrate Urine Negative (Negative); Protein Urine 1+ mg/dL (Negative); RBC Urine >75 /hpf (0-2); Specific Grav Ur 1.023 (1.001-1.035); Squamous Epithelial Cell Urine Occasional /hpf (Few); Urobilinogen Urine Negative mg/dL (<2.0); WBC Urine 0-3 /hpf
[2021-03-08 18:15] LABS: Alanine Aminotransferase 30 U/L (4-35); Albumin Level 4.3 g/dL (3.5-5.1); Alkaline Phosphatase 76 U/L (38-126); Anion Gap 9 mmol/L (8-16); Aspartate Amino Transferase 30 U/L (14-36); Bilirubin,Total 0.8 mg/dL (0.2-1.3); Blood Urea Nitrogen 18 mg/dL (7-17); Calcium 9.5 mg/dL (8.4-10.2); Carbon Dioxide 29 mmol/L (22-30); Chloride 94 mmol/L (98-107); Estimated CRCL calculation 56 ml/min; Estimated Glomerular Filt Rate 51; Glucose 175 mg/dL (65-110); Lipase 40 U/L (23-300); Potassium 3.9 mmol/L (3.4-5.0); Sodium 132 mmol/L (137-145)
[2021-03-08 18:22] LABS: Basophils Percent Auto 0.2 % (0.2-1.2); Hematocrit 44.4 % (37.0-47.0); Hemoglobin 14.4 g/dL (12.0-15.0); Immature Granulocyte Absolute 0.03 K/mm3 (0.00-0.031); Immature Granulocyte Percent A 0.2 % (0-0.5); Lymphocytes Absolute Auto 1.59 K/mm3 (0.9-3.2); Lymphocytes Percent Auto 11.1 % (18.3-44.2); Mean Corpuscular HGB Conc 32.4 g/dl (32-36); Mean Corpuscular Hemoglobin 29.2 pg (26-34); Mean Corpuscular Volume 90.1 fl (80-100); Mean Platelet Volume 10.3 fl (7.4-10.4); Monocytes Absolute Auto 0.8 K/mm3 (0.1-0.6); Monocytes Percent Auto 5.4 % (2.6-8.5); Neutrophils Percent Auto 83.1 % (45.5-73.1); Platelet Count Result 281 k/mm3 (150-375); Red Blood Count 4.93 M/mm3 (4.2-5.4); Red Cell Distribution Width 13.8 % (11.5-14.5); White Blood Count 14.4 K/mm3 (4.5-10.0)
--- NOTE | 2021-03-08 18:41 | PC.NURSE ---
Compazine given per EDP verbal order at this time 5mg due to patient condition.
[2021-03-08] MEDS: PROCHLORPERAZINE EDISYLATE 10 MG/2 ML VIAL 5 MG IV PUSH (18:58)
--- NOTE | 2021-03-08 19:10 | PC.NURSE ---
Fluids not infusing at this time, unknown intake of NaCl.
--- NOTE | 2021-03-08 19:43 | PC.NURSE ---
Pt to imaging at this time.
[2021-03-08] MEDS: MORPHINE SULFATE (*CRX) 4 MG/ML INJ IV PUSH (20:33)
--- NOTE | 2021-03-08 20:59 | ED.GENADULT ---
HPI - General Adult General Chief complaint: Back Pain/Injury Time Seen by Provider: 03/08/21 17:29 Source: patient Mode of arrival: ambulatory History of Present Illness HPI narrative: 61-year-old with a history of hypertension, kidney stones here with complaints of left flank pain radiating into the left lower abdomen. Patient states that she was seen in the emergency room 2 days ago for the same. She denies any fever or chills. She denies any blood in the urine. Related Data Home Medications Medication Instructions Recorded Confirmed acetaminophen 500 mg tablet 500 mg PO Q6H PRN 09/27/20 03/03/21 meloxicam 7.5 mg PO HS 02/01/21 03/03/21 tramadol 50 mg PO HS PRN 02/01/21 03/01/21 benazepril 10 mg PO HS 03/01/21 03/03/21 gabapentin 300 mg PO HS 03/01/21 03/03/21 metoprolol succinate 200 mg PO HS 03/01/21 03/03/21 tizanidine 4 mg PO HS 03/01/21 03/03/21 Allergies Allergy/AdvReac Type Severity Reaction Status Date / Time codeine AdvReac Intermediate Nausea Verified 03/08/21 17:21 levofloxacin AdvReac Intermediate ACHILLES Verified 03/08/21 17:21 TENDON INJURY Review of Systems Review of Systems: All systems reviewed & are unremarkable except as noted in HPI and below Constitutional: Constitutional: Reports no additional constitutional complaints Eyes: Eyes: Reports no additional eye complaints ENT: Reports system reviewed and no additional complaints, except as documented Cardiovascular: Cardiovascular: Reports no additional cardiovascular complaints Respiratory: Respiratory: Reports no additional respiratory complaints Gastrointestinal: Gastrointestinal: Reports as per HPI Genitourinary: Genitourinary: Reports as per HPI Musculoskeletal: Musculoskeletal: Reports no additional musculoskeletal complaints Integumentary/Breasts: Skin/Breast: Reports system reviewed and no additional complaints, except as docu Neurologic: Reports system reviewed and no additional complaints, except as documented Psychiatric: Psychiatric: Reports no additional psychiatric complaints Endocrine: Endocrine: Reports no additional endocrine complaints PMFSH Past Medical History Medical History BMI 39.0-39.9,adult BMI 40.0-44.9, adult BMI greater than 40 Candidiasis of breast Dermatitis of external ear Hypertension Kidney stones Mixed hyperlipidemia Morbid obesity PONV (postoperative nausea and vomiting) Screen for colon cancer Screening for breast cancer Surgical History Surgical History History of hysterectomy History of oophorectomy Family History Family History Father Family history of lung cancer Family history of coronary artery disease Mother Family history of malignant neoplasm of breast in first degree relative Breast cancer Osteoporosis Social History Social History Smoking packs per day: 1 Smoking cigarettes per day: 20.0 Years smoked: 30 Smoking pack-years: 30.00 Smoking status: Former smoker Tobacco type: cigarettes Second hand tobacco smoke exposure: No Smoking end date: 02/22/09 Alcohol intake: never Substance use: never Substance use type: does not use 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 HEAD: Normocephalic, atraumatic. EYES: PERRLA and EOMI.. NECK: Supple. CHEST: Clear to auscultation. No respiratory distress. HEART: Regular rate and rhythm. No murmur heard. Normal peripheral pulses. ABDOMEN: Soft, nontender, nondistended, normal active bowel sounds. Mild left side. CVA tenderness EXTR
--- NOTE | 2021-03-08 23:42 | PC.NURSE ---
This patient, Robyn Abraham, was admitted to 3 [facility] Surg Room 306-02 @ 23:35. Patient/family oriented to hospital policies and general routines including ID bracelet, bed and alarms, visiting hours, pain management, procedures, bathroom and other care routines, personal items, smoking policy, room service/diet, and visiting hours. Information on how to activate the Rapid Response Team has been discussed. Patient/Family are encouraged to report perceived risks to care and to ask questions if they do not understand what they are told or what they should do.
[2021-03-09] VITALS (14 sets, daily range): BP systolic 118–170; BP diastolic 58–95; PULSE 55–68; RESP 11–20; TEMP 36.4–37.2; O2SAT 91–100
[2021-03-09] MEDS: MORPHINE SULFATE (*CRX) 4 MG/ML INJ IV PUSH ×6 (00:14→22:34)
[2021-03-09] MEDS: ONDANSETRON INJ 4 MG/2 ML VIAL IV PUSH ×2 (00:16→06:20)
[2021-03-09] MEDS: SODIUM CHLORIDE 0.9% IV 1,000 ML 125 ML IV CONT ×2 (00:16→13:50)
--- NOTE | 2021-03-09 06:50 | PM.IMHP ---
H&P: HPI History of Present Illness Date/Time: 03/09/21 06:50 Pleasant 61-year-old female who is a recurrent stone former. Six days ago she underwent left ESWL for a large stone in her left kidney. Since then she has been in the ER twice with recurrent left flank pain. First, 3 days ago, imaging revealed just a 1-2 mm proximal ureteral stone which he passed spontaneously. Yesterday, however repeat imaging suggests a larger residual fragment obstructing her left mid ureter. She has been admitted for hydration and analgesics. Chief Complaint: Left flank pain Review of Systems Cardiovascular: Cardiovascular: Denies chest pain, Denies lightheadedness, Denies palpitations and Denies dyspnea Respiratory: Respiratory: Denies dyspnea Gastrointestinal: Gastrointestinal: Denies diarrhea, Denies nausea and Denies vomiting Genitourinary: Genitourinary: Denies hematuria and Denies dysuria Endocrine: Endocrine: Denies palpitations [facility] Past Medical History Medical History BMI 39.0-39.9,adult BMI 40.0-44.9, adult BMI greater than 40 Candidiasis of breast Dermatitis of external ear Hypertension Kidney stones Mixed hyperlipidemia Morbid obesity PONV (postoperative nausea and vomiting) Screen for colon cancer Screening for breast cancer Surgical History Surgical History History of hysterectomy History of oophorectomy Family History Family History Father Family history of lung cancer Family history of coronary artery disease Mother Family history of malignant neoplasm of breast in first degree relative Breast cancer Osteoporosis Social History Social History Smoking packs per day: 1 Smoking cigarettes per day: 20.0 Years smoked: 30 Smoking pack-years: 30.00 Smoking status: Former smoker Tobacco type: cigarettes Second hand tobacco smoke exposure: No Smoking end date: 02/22/09 Alcohol intake: never Substance use: never Substance use type: does not use 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[employer] Gender identity (if verbalized by the patient): Female Spiritual care concerns: No Agree to blood products: Yes Meds Home Medications and Allergies Home Medications Medication Instructions Recorded Confirmed Type acetaminophen 500 mg tablet 500 mg PO Q6H PRN 09/27/20 03/09/21 History meloxicam 7.5 mg PO HS 02/01/21 03/08/21 History tramadol 50 mg PO HS PRN 02/01/21 03/08/21 History benazepril 10 mg PO HS 03/01/21 03/09/21 History gabapentin 300 mg PO HS 03/01/21 03/09/21 History metoprolol succinate 200 mg PO HS 03/01/21 03/08/21 History tizanidine 4 mg PO HS 03/01/21 03/08/21 History cephalexin 500 mg PO Q8H #9 cap 03/03/21 03/09/21 Rx hydrocodone-acetaminophen 1 - 2 tablet PO Q6H PRN #20 tablet 03/03/21 03/09/21 Rx atorvastatin 10 mg PO HS 03/09/21 03/09/21 History escitalopram oxalate 10 mg PO HS 03/09/21 03/09/21 History Allergies Allergy/AdvReac Type Severity Reaction Status Date / Time codeine AdvReac Intermediate Nausea Verified 03/09/21 00:05 levofloxacin AdvReac Intermediate ACHILLES Verified 03/09/21 00:05 TENDON INJURY Vital Signs Vital Signs - 24 hr 03/08/21 17:18 03/08/21 19:31 03/08/21 20:33 Temperature Pulse Rate 62 66 63 Respiratory Rate 18 18 18 Blood Pressure 158/80 H 172/77 H 154/91 H Pulse Oximetry 98 95 94 03/08/21 20:47 03/08/21 21:02 03/08/21 21:32 Temperature Pulse Rate 58 L 58 L 57 L Respiratory Rate 20 19 18 Blood Pressure 146/80 H 143/78 H 141/81 H Pulse Oximetry 93 90 89 L 03/08/21 22:01 03/08/21 22:15 03/08/21 22:16 Temperature Pulse Rate 57 L 59 L 58 L Respiratory Rate 18 18 18 Blood Pressure 139/80 155/89 H Pulse Oximetry 91 90 91 03/08/21
--- NOTE | 2021-03-09 06:53 | WPDHPUPDATE1 ---
History and Physical Update Update Date/Time: 03/09/21 06:53 History and Physical has been reviewed, including an updated exam of the patient. There are NO changes in the patient's condition. Risks, benefits, and alternatives have been discussed and questions answered. Patient agrees to proceed with procedure.
[2021-03-09 06:58] LABS: Basophils Percent Auto 0.2 % (0.2-1.2); Eosinophils Percent Auto 0.3 % (0-4.4); Hemoglobin 12.6 g/dL (12.0-15.0); Immature Granulocyte Absolute 0.03 K/mm3 (0.00-0.031); Immature Granulocyte Percent A 0.3 % (0-0.5); Lymphocytes Absolute Auto 1.87 K/mm3 (0.9-3.2); Lymphocytes Percent Auto 15.9 % (18.3-44.2); Mean Corpuscular HGB Conc 31.5 g/dl (32-36); Mean Corpuscular Hemoglobin 28.5 pg (26-34); Mean Corpuscular Volume 90.5 fl (80-100); Mean Platelet Volume 10.3 fl (7.4-10.4); Monocytes Absolute Auto 0.9 K/mm3 (0.1-0.6); Monocytes Percent Auto 7.3 % (2.6-8.5); Neutrophils Absolute Auto 8.9 K/mm3 (1.3-6.7); Platelet Count Result 228 k/mm3 (150-375); Red Blood Count 4.42 M/mm3 (4.2-5.4); Red Cell Distribution Width 13.9 % (11.5-14.5); White Blood Count 11.7 K/mm3 (4.5-10.0)
[2021-03-09 07:07] LABS: Anion Gap 8 mmol/L (8-16); Blood Urea Nitrogen 17 mg/dL (7-17); Calcium 8.7 mg/dL (8.4-10.2); Carbon Dioxide 32 mmol/L (22-30); Chloride 100 mmol/L (98-107); Estimated CRCL calculation 61 ml/min; Estimated Glomerular Filt Rate 51; Glucose 145 mg/dL (65-110); Potassium 4.1 mmol/L (3.4-5.0); Sodium 140 mmol/L (137-145)
--- NOTE | 2021-03-09 07:52 | WPDANESEPPF ---
Anes - Initial Pre Proc Eval Procedure: Operation Date: 03/09/21 11:30 Proposed Procedures p Cystoscopy,Left Retrograde Pyelogram,Left Ureteroscopy,Stone Extraction,Holmium Laser,Possible Stent - Abdelrahman Chan MD Date/Time: 03/09/21 07:53 Surgeon: Abdelrahman Chan MD Pre Op Diagnosis: Ureterolithiasis Patient Data Age: 61 Gender: F Height: 1.65 m Weight: 115.9 kg Last Vital Signs Temp 36.5 C 03/09/21 06:00 Pulse 66 03/09/21 06:00 Resp 16 03/09/21 06:00 BP 118/58 L 03/09/21 06:00 Pulse Ox 95 03/09/21 06:00 Allergies Allergy/AdvReac Type Severity Reaction Status Date / Time codeine AdvReac Intermediate Nausea Verified 03/09/21 00:05 levofloxacin AdvReac Intermediate ACHILLES Verified 03/09/21 00:05 TENDON INJURY Home Medications Medication Instructions Recorded Confirmed Type acetaminophen 500 mg tablet 500 mg PO Q6H PRN 09/27/20 03/09/21 History meloxicam 7.5 mg PO HS 02/01/21 03/08/21 History tramadol 50 mg PO HS PRN 02/01/21 03/08/21 History benazepril 10 mg PO HS 03/01/21 03/09/21 History gabapentin 300 mg PO HS 03/01/21 03/09/21 History metoprolol succinate 200 mg PO HS 03/01/21 03/08/21 History tizanidine 4 mg PO HS 03/01/21 03/08/21 History cephalexin 500 mg PO Q8H #9 cap 03/03/21 03/09/21 Rx hydrocodone-acetaminophen 1 - 2 tablet PO Q6H PRN #20 tablet 03/03/21 03/09/21 Rx atorvastatin 10 mg PO HS 03/09/21 03/09/21 History escitalopram oxalate 10 mg PO HS 03/09/21 03/09/21 History Laboratory Tests 03/08/21 03/08/21 03/08/21 17:48 17:48 17:48 WBC 14.4 K/mm3 H K/mm3 (4.5-10.0) RBC 4.93 M/mm3 M/mm3 (4.2-5.4) Hgb 14.4 g/dL g/dL (12.0-15.0) Hct 44.4 % % (37.0-47.0) MCV 90.1 fl fl (80-100) MCH 29.2 pg pg (26-34) MCHC 32.4 g/dl g/dl (32-36) RDW 13.8 % % (11.5-14.5) Plt Count 281 k/mm3 k/mm3 (150-375) MPV 10.3 fl fl (7.4-10.4) Immature Gran % (Auto) 0.2 % % (0-0.5) Neut % (Auto) 83.1 % H % (45.5-73.1) Lymph % (Auto) 11.1 % L % (18.3-44.2) [place] % (Auto) 5.4 % % (2.6-8.5) Eos % (Auto) 0.0 % % (0-4.4) Baso % (Auto) 0.2 % % (0.2-1.2) Lymph # (Auto) 1.59 K/mm3 K/mm3 (0.9-3.2) [place] # (Auto) 0.8 K/mm3 H K/mm3 (0.1-0.6) Eos # (Auto) 0.0 K/mm3 K/mm3 (0-0.3) Baso # (Auto) 0.0 K/mm3 K/mm3 (0.0-0.1) Abs Immat Gran (auto) 0.03 K/mm3 K/mm3 (0.00-0.031) Absolute Neuts (auto) 12.0 K/mm3 H K/mm3 (1.3-6.7) Absolute Nucleated RBC 0.0 K/mm3 K/mm3 (0.0-0.012) Nucleated RBC % 0.0 % % (0.0-0.2) Sodium 132 mmol/L L mmol/L (137-145) Potassium 3.9 mmol/L mmol/L (3.4-5.0) Chloride 94 mmol/L L mmol/L (98-107) Carbon Dioxide 29 mmol/L mmol/L (22-30) Anion Gap 9 mmol/L mmol/L (8-16) BUN 18 mg/dL H mg/dL (7-17) Creatinine 1.10 mg/dL H mg/dL (0.7-1.0) Estim Creat Clear Calc 56 ml/min ml/min Estimated GFR 51 L (59 - ) Glucose 175 mg/dL H mg/dL (65-110) Calcium 9.5 mg/dL mg/dL (8.4-10.2) Total Bilirubin 0.8 mg/dL mg/dL (0.2-1.3) AST 30 U/L U/L (14-36) ALT 30 U/L U/L (4-35) Alkaline Phosphatase 76 U/L U/L (38-126) Total Protein 8.0 g/dL g/dL (6.3-8.2) Albumin 4.3 g/dL g/dL (3.5-5.1) Lipase 40 U/L U/L (23-300) Urine Color Yellow (Yellow) Urine Appearance Clear (Clear) Urine pH 6.0 (5.0-9.0) Ur Specific [place] 1.023 (1.001-1.035) Urine Protein 1+ mg/dL H mg/dL (Negative) Urine Glucose (UA) Negative mg/dL mg/dL (Negative) Urine Ketones Negative mg/dL mg/dL (Negative) Ur Blood (Man) 3+ H (Negative) Urine Nitrat
--- NOTE | 2021-03-09 10:13 | PC.NURSE ---
to OR per stretcher. iv fluids saline locked
[2021-03-09] MEDS: LACTATED RINGERS 1,000 ML 30 ML IV CONT (10:35)
[2021-03-09] MEDS: ceFAZolin 2 GM/D5W 50 ML 2 GM/50 ML BAG IVPB (11:45)
[2021-03-09] MEDS: LIDOCAINE HCL 2% GEL UROJET 10 ML PKG MUCOUS MEM (12:00)
--- NOTE | 2021-03-09 12:14 | W.PM.PROC2 ---
Procedure Note - Detailed Date of Procedure 03/09/21 Pre-op Diagnosis Left ureteral and renal calculi Post-op Diagnosis same Procedure Performed Cystoscopy, left retrograde pyelography, left ureteroscopy with stone extraction and left ureteral stent placement Surgeon Abdelrahman Chan MD Anesthesia general Description of Procedure Patient is brought to the operative suite where she has prepped draped in routine sterile fashion while in dorsal lithotomy position after the uneventful induction of a general anesthetic. Cystoscopy is undertaken with a 19 F rigid cystoscope. Bladder neck and urethra endoscopically normal. Bladder shows multiple small stone fragments from her recent lithotripsy. A 0.035 in glidewire was advanced in left renal pelvis and the distal ureter was dilated with an 8 F 10 F dilator. Ureteroscopy was undertaken both with a semi-rigid and flexible ureteral scope. There were no additional ureteral calculi. This suggests that the stone visualized yesterday was a collection of stone fragments did have sent spontaneously passed into her bladder. I extracted several years larger fragments with a 1.9 F disposable stone basket. I did perform left renoscopy after doing a retrograde pyelogram to outline the entire collecting system. All calices were examined there were no sizable stone fragments but multiple tiny tiny little pieces as a result of her lithotripsy. Ureteral scope was removed and 4.8 F variable length stent was positioned with the left proximal coil in the renal pelvis distal coil bladder. Patient tolerated the procedure well was taken recovery room good condition. Estimated Blood Loss 0 Urine Output 500 Drains Yes (4.8F left ureteral stent) Packing No Pathology yes Complications No immediate complications Condition stable Disposition PACU
[2021-03-09] MEDS: fentaNYL CITRATE INJ (*CRX) 100 MCG/2 ML VIAL 25 MCG IV PUSH ×4 (12:53→13:15)
--- NOTE | 2021-03-09 13:38 | PC.NURSE ---
[id number] patient returned from surgery
[2021-03-09] MEDS: ACETAMINOPHEN 500 MG TABLET 1000 MG PO (18:15)
[2021-03-10 02:59] VITALS: BP 111/55; PULSE 65; RESP 16; TEMP 36.3; O2SAT 94
[2021-03-10] MEDS: MORPHINE SULFATE (*CRX) 4 MG/ML INJ IV PUSH (03:21)
--- NOTE | 2021-03-10 06:36 | WPDUROPN2 ---
Progress Note: A&P Assessment and Plan (1) Left ureteral calculus: Code(s): N20.1 - Calculus of ureter Status: Acute Assessment and Plan: Probable discharge later today. F/U approx. 10 days for stent removal. Subjective Subjective Date/Time Seen: 03/10/21 06:36 Tolerating stent, persistent KHANNA Review of Systems Cardiovascular: Cardiovascular: Denies chest pain, Denies lightheadedness, Denies palpitations and Denies dyspnea Respiratory: Respiratory: Denies dyspnea Gastrointestinal: Gastrointestinal: Denies diarrhea, Denies nausea and Denies vomiting Genitourinary: Genitourinary: Denies hematuria and Denies dysuria Endocrine: Endocrine: Denies palpitations Exam Const: General: no acute distress Resp: Effort & Inspection: normal respiratory effort GI: Inspection: non-distended GI Palp: No abdominal tenderness and No Guarding due to palpation present (GI) Auscultation: normal bowel sounds Objective Data Vital Signs Vital Signs: Vital Signs - 24 hr 03/09/21 10:24 03/09/21 12:18 03/09/21 12:30 Temperature 98.0 F 97.6 F Pulse Rate 61 60 56 L Respiratory Rate 20 14 13 Blood Pressure 124/62 170/95 H 150/88 H Pulse Oximetry 92 100 100 03/09/21 12:45 03/09/21 13:00 03/09/21 13:15 Temperature Pulse Rate 57 L 56 L Respiratory Rate 15 13 11 L Blood Pressure 166/86 H 144/89 H 136/90 Pulse Oximetry 99 99 99 03/09/21 13:22 03/09/21 13:35 03/09/21 13:50 Temperature 97.6 F 98.2 F 97.6 F Pulse Rate 57 L 57 L 60 Respiratory Rate 13 16 16 Blood Pressure 152/90 H 156/87 H 154/73 H Pulse Oximetry 99 91 91 03/09/21 14:20 03/09/21 15:20 03/09/21 20:21 Temperature 98.4 F 98.5 F 97.7 F Pulse Rate 62 68 66 Respiratory Rate 16 18 18 Blood Pressure 161/79 H 136/82 119/66 Pulse Oximetry 91 92 92 03/10/21 02:59 Temperature 97.3 F L Pulse Rate 65 Respiratory Rate 16 Blood Pressure 111/55 L Pulse Oximetry 94 Intake/Output Intake/Output: Intake & Output 03/07/21 03/08/21 03/09/21 03/10/21 23:59 23:59 23:59 23:59 Intake Total 1000 2960 Output Total 1950 Balance 1000 1010 Meds/Results Medications: Active Medications Generic Name Dose Route Start Last Admin Trade Name Freq PRN Reason Stop Dose Admin Acetaminophen 1,000 mg 03/09/21 17:57 03/09/21 18:15 Acetaminophen 500 Mg Tablet PO 1,000 mg Q6H PRN Administration Mild Pain (1-3) or Fever Ketorolac Tromethamine 10 mg 03/10/21 06:34 Ketorolac 10 Mg Tablet PO 03/10/21 06:35 ONCE ONE Morphine Sulfate 4 mg 03/08/21 21:07 03/10/21 03:21 Morphine Sulfate (*Crx) 4 Mg/Ml Inj IV PUSH 4 mg Q2H PRN Administration Pain Rated 7-10 Ondansetron HCl 4 mg 03/08/21 21:07 03/09/21 06:20 Ondansetron Inj 4 Mg/2 Ml Vial IV PUSH 4 mg Q4H PRN Administration Nausea Radiology Results: ITS Impressions Abdomen/Pelvis CT 03/08/21 19:55 IMPRESSION: Prominent left hydroureteronephrosis secondary to 4 x 12 mm calculus of L3-4 level Bilateral nephrolithiasis Cholelithiasis Hepatic steatosis Probable bilateral small adrenal adenomas Status post hysterectomy Colonic diverticulosis Retrograde Pyelogram 03/09/21 15:36 IMPRESSION: Left ureteral stent in position. Labs Labs: Laboratory Results - last 24 hr 03/09/21 03/09/21 06:19 06:19 WBC 11.7 H RBC 4.42 Hgb 12.6 Hct 40.0 MCV 90.5 MCH 28.5 MCHC 31.5 L RDW 13.9 Plt Count 228 MPV 10.3 Immature Gran % (Auto) 0.3 Neut % (Auto) 76.0 H Lymph % (Auto) 15.9 L [place] % (Auto) 7.3 Eos % (Auto) 0.3 Baso % (Auto) 0.2 Lymph # (Auto) 1.87 [place] # (Auto) 0.9 H Eos # (Auto) 0.0 Baso # (Auto) 0.0 Abs Immat Gran (auto) 0.03 Absolute Neuts (auto) 8.9 H Absolute Nucleated RBC 0.0 Nucleated RBC % 0.0 Sodium 140 Potassium 4.1 Chloride 100 Carbon Dioxide 32 H Anion Gap 8 BUN 17 Creatinine 1.10 H Estim Creat Clear Calc 61 Estimated GFR
[2021-03-10 07:02] VITALS: BP 120/61; PULSE 70; RESP 18; TEMP 36; O2SAT 94
[2021-03-10] MEDS: KETOROLAC 10 MG TABLET PO (08:03)
[2021-03-10] MEDS: ACETAMINOPHEN 500 MG TABLET 1000 MG PO (09:21)
--- NOTE | 2021-03-22 20:47 | PM.DS ---
DS: Admitting Diagnosis Discharge Date 03/10/21 Admitting Diagnosis Left ureteral stone DS: Discharge Diagnosis Discharge Diagnosis (1) Left ureteral calculus: Code(s): N20.1 - Calculus of ureter Status: Acute DS: Summary Hospital Course Hospital Course: the patient was status post recent ESWL for a large left renal calculus. Subsequently she was in the ER twice with small fragments stuck in her left ureter. The for she passed spontaneously but on the 2nd occasion she required admission with subsequent endoscopic extraction. Ureteral stent was left in place. She was observed overnight the following morning was comfortable and tolerating a diet. Time Spent with Patient Time attestation: Total time spent providing and/or coordinating discharge services: 20min. Exam Const: General: no acute distress Resp: Effort & Inspection: normal respiratory effort GI: Inspection: non-distended GI Palp: No abdominal tenderness and No Guarding due to palpation present (GI) Auscultation: normal bowel sounds DS: Data Data Completed and Pending Completed studies during hospitalization: Pending at discharge 03/09/21 12:09 Surgical [PTH] Routine Discharge Plan Discharge Attending physician on discharge: Abdelrahman Chan Consulting providers: Kelvin Sam ; Jake Starkey Discharging Clinician: Ava Thornton Anticipated Discharge Date/Time: 03/10/21 13:04 Patient Disposition: Home, Self-Care Activity: may shower Diet: as tolerated Discharge Instructions: Call the office if you develop a fever of >102, a low grade fever may be expected post operatively for 2-3 days, or if you develop worsening hematuria with clots, malodorous urine or severe abdominal pain. Otherwise, f/u as planned with Dr. Chan for a stent removal on 03/22/2021 at 12:45pm in our [place], [place] location. [id number] [facility] [place] [address] Patient Instructions: Antibiotic Form, Cystoscopy (DC), Ureteral Stent Placement (DC) Stand Alone Forms: General Discharge Information Follow-up/Referrals: Abdelrahman Chan MD [Physician] - Discharge Medications: Continued acetaminophen 500 mg tablet 500 mg PO Q6H PRN (Reason: Pain) RF: 0 tramadol 50 mg tablet 50 mg PO HS PRN (Reason: pain) RF: 0 meloxicam 7.5 mg tablet 7.5 mg PO HS RF: 0 tizanidine 4 mg capsule 4 mg PO HS RF: 0 metoprolol succinate 100 mg tablet extended release 24 hr 200 mg PO HS RF: 0 gabapentin 300 mg capsule 300 mg PO HS RF: 0 benazepril 10 mg tablet 10 mg PO HS RF: 0 atorvastatin 10 mg tablet 10 mg PO HS RF: 0 escitalopram oxalate 10 mg tablet 10 mg PO HS RF: 0 No Action ondansetron HCl [Zofran] 4 mg tablet 4 mg PO Q8H PRN (Reason: nausea and vomiting) Qty: 20 RF: 0 azithromycin [Zithromax] 250 mg tablet See Rx Instructions PO .COMPLEX Qty: 6 RF: 0 amoxicillin 500 mg tablet 500 mg PO Q8H 5 Days Qty: 15 RF: 0 Date of admission: 03/08/21 21:09 Primary Care Provider: Demond Shaw Admitting Provider: Abdelrahman Chan Attending physician on admission: Abdelrahman Chan Condition: Stable
== END 2021-03-10 14:38 | disposition home or self-care (01) ==
LOC: ANHED 21:19 → ANH3MEDSUR 03-09 06:32
PROVIDERS: Emergency Medicine; Admitting Provider Urology; Emergency Provider Family Medicine; PCP Family Medicine; Visit Provider Urology
PROC: (CPT 52352; principal; 2021-03-09 11:30)
DX: N20.1 Calculus of ureter (principal); N20.0 Calculus of kidney; I10 Essential (primary) hypertension; Z87.891 Personal history of nicotine dependence
CPT/HCPCS: 52356; 36415; 74176; 74420; 80048; 80053; 81001; 82365; 83690; 85025; 88300; 96361; 96374; 96375; 99285; A9270; C1769; C2617; G0378; J0690; J0780; J2250; J2270; J2405; J3010; J7030; J7120; Q9966

== ENCOUNTER 2021-03-13 10:12 | Outpatient (CLI) | payer BC, SELFPAY ==
--- NOTE | ~2021-03-13 | NM_ITS ---
EXAMINATION: NM hepatobiliary wo pharm DATE: 03/13/2021 13:42 INDICATION: Calculus of gallbladder without cholecystitis. COMPARISON: CT abdomen and pelvis 04/07/2021 TECHNIQUE: 4.8 mCi Tc-99m mebrofenin (Choletec) was administered intravenously. Scintigraphic images of the abdomen were obtained for one hour. Then, the patient drank 8 oz Ensure, and imaging was cont inued for 60 minutes. FINDINGS: There is normal clearance of radiotracer from the blood pool. There is homogeneous tracer u ptake by the liver. Activity progresses to the bowel and gallbladder. Gallbladder ejection fraction (GBEF) was 47%. Note that with this technique, normal GBEF >= 33%. IMPRESSION: 1. Normal hepatobiliary scintigraphy. Reviewed, dictated and finalized at location A.
== END 2021-03-13 10:13 | disposition home or self-care (01) ==
LOC: ANHIMG 10:15
PROVIDERS: PCP Family Medicine; Visit Provider Physician Assistant Medical
DX: K80.20 Calculus of gallbladder without cholecystitis without obstruction (principal); R10.9 Unspecified abdominal pain
CPT/HCPCS: 78226; A9537

== ENCOUNTER → 2021-03-23 02:39 | Outpatient (CLI) | payer BC, SELFPAY ==
[2021-03-23 16:56] LABS: SARS-CoV-2 RNA PCR Positive
== END ==
PROVIDERS: PCP Family Medicine; Visit Provider Physician Assistant Medical
DX: U07.1 COVID-19 (principal)
CPT/HCPCS: C9803; U0003; U0005

== ENCOUNTER 2021-03-26 21:43 | Observation (INO) | payer BC, SELFPAY ==
--- NOTE | ~2021-03-26 | US_ITS ---
EXAMINATION: US venous doppler [facility] DATE: 03/27/2021 12:38 INDICATION: Shortness of breath. Left lower limb pain. TECHNIQUE: Grayscale ultrasound images without and with compression and Doppler ultrasound images of the bilateral lower extremity veins were obtained. COMPARISON: None. FINDINGS: The visualized portions of right common femoral vein, profunda (deep) femoral vein, femoral vein, pop liteal vein, posterior tibial veins, peroneal veins, gastrocnemius vein and greater saphenous vein ou tflow are patent. The visualized portions of left common femoral vein, profunda femoral vein, femoral vein, popliteal v ein, posterior tibial veins, peroneal veins, gastrocnemius vein and greater saphenous vein outflow ar e patent. IMPRESSION: 1. No deep venous thrombosis in either lower limb. Reviewed, dictated and finalized at location B.
--- NOTE | ~2021-03-26 | CT_ITS ---
EXAMINATION: CTA chest PE protocol DATE: 03/27/2021 01:44 INDICATION: Dyspnea. Fever, body aches, nausea, vomiting Covid-positive. TECHNIQUE: Computed tomography angiography (CTA) of the chest was performed with 100 mL Omnipaque-350 intravenous contrast timed to evaluate the pulmonary arteries. Coronal maximum intensity projection 3D-reconstructions were created by the technologist. Automated exposure control and iterative reconst ruction technique were employed. Exam dose: 921.48 mGy-cm total exam DLP. COMPARISON: 03/26/2021 portable AP chest 09/06/2017 CT chest FINDINGS: There is suboptimal contrast enhancement of the pulmonary arteries but no apparent pulmonar y embolism. Heart size is within normal range. There is trace pericardial fluid. No pleural effusion. There are scattered patchy groundglass infiltrates minimally involving the left upper lobe and left l ower lobe, to a greater extent the right upper lobe and more prominently the middle and right lower l obes. Findings would be consistent with Covid 19 pneumonia. There is mild likely reactive hilar and mediastinal lymph nodes node prominence. Diffuse hepatic steatosis. Probable cholelithiasis. A left internal urinary stent is noted. There is evidence of bilateral nephrolithiasis. Probable bilateral adrenals small adenomas. Calcified splenic granulomas. Small sliding hiatal hernia. IMPRESSION: Scattered bilateral pulmonary infiltrates, likely due to Covid 19 pneumonia No evidence of pulmonary embolism Hepatic steatosis Cholelithiasis Bilateral nephrolithiasis; left internal urinary stent Reviewed, dictated and finalized at Location A. Reviewed, dictated and finalized at location A.
--- NOTE | ~2021-03-26 | XR_ITS ---
XR chest 1V portable DATE: 03/26/2021 22:47 INDICATION: Dyspnea. Shortness of breath, body aches, fever. Covid-positive. TECHNIQUE: Portable AP chest on 04/12/2021 at 2237 hours COMPARISON: 06/04/2016 2 view chest FINDINGS: There is patchy infiltrate and/or atelectasis in the lower lung zones, right greater than l eft. No pleural effusion or pulmonary vascular congestion or pneumothorax. Normal heart size. No hilar or mediastinal enlargement. Diffuse osteopenia. IMPRESSION: Patchy infiltrate and/atelectasis in the lower lung zones Reviewed, dictated and finalized at location A.
[2021-03-26 21:49] VITALS: BP 147/91; PULSE 114; RESP 20; TEMP 36.2; O2SAT 96
--- NOTE | 2021-03-26 21:54 | ECG_ITS ---
Measurements Intervals [place] Rate: 116 P: 67 ME: 178 QRS: 35 QRSD: 96 T: 11 QT: 371 QTc: 515 Interpretive Statements SINUS TACHYCARDIA NONSPECIFIC ST & T-WAVE ABNORMALITY- ANTEROLAT/INF LEADS BASELINE ARTIFACT- II, III, V3, V6 ABNORMAL ECG Electronically Signed On 03-27-2021 16:32:30 CDT by Darron Will D.O.
[2021-03-26 22:16] LABS: Basophils Percent Auto 0.3 % (0.2-1.2); Eosinophils Absolute Auto 0.2 K/mm3 (0-0.3); Eosinophils Percent Auto 2.9 % (0-4.4); Hematocrit 46.9 % (37.0-47.0); Hemoglobin 15.9 g/dL (12.0-15.0); Immature Granulocyte Absolute 0.02 K/mm3 (0.00-0.031); Immature Granulocyte Percent A 0.3 % (0-0.5); Lymphocytes Absolute Auto 2.32 K/mm3 (0.9-3.2); Lymphocytes Percent Auto 32.4 % (18.3-44.2); Mean Corpuscular HGB Conc 33.9 g/dl (32-36); Mean Corpuscular Hemoglobin 29.1 pg (26-34); Mean Corpuscular Volume 85.9 fl (80-100); Mean Platelet Volume 9.8 fl (7.4-10.4); Monocytes Absolute Auto 0.4 K/mm3 (0.1-0.6); Monocytes Percent Auto 6.2 % (2.6-8.5); Neutrophils Absolute Auto 4.1 K/mm3 (1.3-6.7); Neutrophils Percent Auto 57.9 % (45.5-73.1); Platelet Count Result 360 k/mm3 (150-375); Red Blood Count 5.46 M/mm3 (4.2-5.4); Red Cell Distribution Width 13.3 % (11.5-14.5); White Blood Count 7.2 K/mm3 (4.5-10.0)
[2021-03-26 22:33] LABS: Anion Gap 16 mmol/L (8-16); Blood Urea Nitrogen 15 mg/dL (7-17); Calcium 9.9 mg/dL (8.4-10.2); Carbon Dioxide 27 mmol/L (22-30); Chloride 94 mmol/L (98-107); Estimated CRCL calculation 73 ml/min; Estimated Glomerular Filt Rate > 60; Glucose 181 mg/dL (65-110); Potassium 3.2 mmol/L (3.4-5.0); Sodium 137 mmol/L (137-145)
[2021-03-27] VITALS (11 sets, daily range): BP systolic 131–190; BP diastolic 88–98; PULSE 77–119; RESP 16–25; TEMP 36.4–37; O2SAT 94–97; BMI 38.3
[2021-03-27 00:47] LABS: INR 1.1; Prothrombin Time 14.2 Seconds (11.1-14.7)
[2021-03-27 00:48] LABS: Partial Thromboplastin Time 24.1 SECONDS (22.3-36.8)
[2021-03-27 00:50] LABS: D Dimer 0.51 ug/mL (<0.48)
[2021-03-27 00:56] LABS: CRP 2.7 mg/dL (<1.0); Lactate Dehydrogenase 497 U/L (313-618)
--- NOTE | 2021-03-27 01:08 | ED.GENADULT ---
HPI - General Adult General Chief complaint: Shortness of Breath/Dyspnea Stated complaint: COVID +, sob, n/v/d Time Seen by Provider: 03/27/21 00:02 Source: RN notes reviewed History of Present Illness HPI narrative: Patient presents emergency department from home for COVID-19. Patient states that she has been sick for approximately 1 week and tested positive for COVID-19 on 03/24 patient states she did receive both of her Covid vaccinations back in August she states that she has had a headache as well as a cough this been nonproductive, shortness of breath, nausea and vomiting and generalized fatigue she denies any chest pain or abdominal pain at this time. States she took Excedrin this morning but no other medication this afternoon Related Data Home Medications Medication Instructions Recorded Confirmed acetaminophen 500 mg tablet 500 mg PO Q6H PRN 09/27/20 03/22/21 meloxicam 7.5 mg PO HS 02/01/21 03/22/21 tramadol 50 mg PO HS PRN 02/01/21 03/22/21 benazepril 10 mg PO HS 03/01/21 03/22/21 gabapentin 300 mg PO HS 03/01/21 03/22/21 metoprolol succinate 200 mg PO HS 03/01/21 03/22/21 tizanidine 4 mg PO HS 03/01/21 03/22/21 atorvastatin 10 mg PO HS 03/09/21 03/22/21 escitalopram oxalate 10 mg PO HS 03/09/21 03/22/21 Allergies Allergy/AdvReac Type Severity Reaction Status Date / Time codeine AdvReac Intermediate Nausea Verified 03/27/21 00:20 levofloxacin AdvReac Intermediate ACHILLES Verified 03/27/21 00:20 TENDON INJURY Review of Systems Review of Systems: Gen.: Denies fevers or chills reports general malaise Eyes: Denies eye pain or visual change ENT: Denies congestion Respiratory: See HPI CV: Denies chest pain or palpitations GI: Denies abdominal pain reports nausea vomiting and diarrhea Musculoskeletal: Denies back pain or muscle pain Neuro: Reports headache Skin: Denies rash Except as documented, all other systems reviewed and negative PMFSH Past Medical History Medical History BMI 39.0-39.9,adult BMI 40.0-44.9, adult BMI greater than 40 Candidiasis of breast Dermatitis of external ear Hypertension Kidney stones Mixed hyperlipidemia Morbid obesity PONV (postoperative nausea and vomiting) Screen for colon cancer Screening for breast cancer Surgical History Surgical History H/O lithotripsy History of cystoscopy History of hysterectomy History of oophorectomy Family History Family History Father Family history of lung cancer Family history of coronary artery disease Mother Family history of malignant neoplasm of breast in first degree relative Breast cancer Osteoporosis Social History Social History Smoking packs per day: 1 Smoking cigarettes per day: 20.0 Years smoked: 30 Smoking pack-years: 30.00 Tobacco type: cigarettes Second hand tobacco smoke exposure: No Smoking end date: 02/22/09 Alcohol intake: never Substance use: never Substance use type: does not use 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 CARDIOVASCULAR: Regular rate and rhythm without murmurs rubs or gallops. ABDOMINAL: Soft, nontender, nondistended, no rebound or guarding MUSCULOSKELETAl: Moves all extremities. No clubbing, cyanosis or edema. NEURO: Awake and alert. Following commands, speech normal, no focal deficits SKIN:: Warm, dry. No rashes lesions or abrasions PSYCHIATRIC: Normal affect/mo
[2021-03-27] MEDS: SODIUM CHLORIDE 0.9% IV 1,000 ML 999 ML IV CONT (01:12)
[2021-03-27] MEDS: ONDANSETRON INJ 4 MG/2 ML VIAL IV PUSH (01:17)
[2021-03-27] MEDS: FAMOTIDINE 20 MG/2 ML VIAL IV PUSH (01:18)
--- NOTE | 2021-03-27 02:52 | ECG_ITS ---
Measurements Intervals [place] Rate: 89 P: 57 NV: 184 QRS: 23 QRSD: 100 T: 4 QT: 389 QTc: 475 Interpretive Statements SINUS RHYTHM WITH SINUS ARRHYTHMIA CONSIDER INFERIOR INFARCT, AGE INDETERMINATE BORDERLINE ST-T WAVE ABNORMALITY- ANTERIOR LEADS ABNORMAL ECG Electronically Signed On 03-27-2021 5:48:46 CDT by Darron Will D.O.
[2021-03-27] MEDS: POTASSIUM CHLORIDE 20 MEQ TABLET PO (03:34)
[2021-03-27] MEDS: KETOROLAC 30 MG/ML VIAL (*BKC) IV PUSH (03:35)
--- NOTE | 2021-03-27 04:47 | ADMGEN ---
This patient, Robyn Abraham, was admitted to IMU Room 214-01. Patient/family oriented to hospital policies and general routines including ID bracelet, bed and alarms, visiting hours, pain management, procedures, bathroom and other care routines, personal items, smoking policy, room service/diet, and visiting hours. Information on how to activate the Rapid Response Team has been discussed. Patient/Family are encouraged to report perceived risks to care and to ask questions if they do not understand what they are told or what they should do.
[2021-03-27] MEDS: SODIUM CHLORIDE 0.9% IV 1,000 ML 80 ML IV CONT (04:58)
--- NOTE | 2021-03-27 10:36 | PM.IMHP ---
H&P: HPI History of Present Illness Date/Time: 03/27/21 10:36 Pt is a 61 yo female w/ hx of HTN, HLD, morbid obesity, chronic back pain, and nephrolithiasis who presented to the ED yesterday with complaint of dizziness, headache, and sob following a positive COVID test on 03/24/21. Pt states her symptoms started 9 days ago as a cold with nasal congestion, rhinorrhea, dry cough, and sore throat. Her was sick 1 week prior with similar symptoms but tested negative for COVID twice. She states that over the past week her symptoms have continued to get progressively worse. She saw her pcp 6 days ago and was prescribed a zpack which she finished yesterday and was also given an order for a covid test which she completed the following day. She reports intermittent fevers of 101-102, but states she has not had a fever in the past day or two. She also notes nausea, vomiting, diarrhea, and abdominal cramping associated with any food intake. Reports overall decreased PO intake over the past week due to vomiting, diarrhea, and lack of taste. Patient states 5 days ago she called EMS for her sob, but after paramedics told her that her oxygen level was normal her anxiety decreased and she decided not to come to the hospital. She received a phone call the following morning that her covid test from the morning prior was actually positive. She states that yesterday her sob, dizziness, and palpitations were worse with any type of exertion, prompting her to go to the ED for further evaluation. Of note, pt had a ureteral stent placed on 03/09/21 and was supposed to have it removed 5 days ago, however her appt was rescheduled to 04/03/21 due to her covid symptoms. She complains of a burning sensation in her L flank and voices concern for the stent needing to be removed. Also admits to darker than usual urine. No dysuria or urinary frequency. No chest pain or abdominal pain currently. Reports difficulty taking a deep breath and slight discomfort with deep inspiration. Also reports headache that was unrelieved with Tylenol or Toradol in the ED. <Julita Mclean PA-C - Last Filed: 03/27/21 12:57> Chief Complaint: shortness of breath w/ nausea/vomiting <Julita Mclean PA-C - Last Filed: 03/27/21 12:57> Review of Systems Review of Systems: General: +fevers, +chills, + fatigue Eyes: Denies vision changes or eye pain ENT: + nasal congestion, +sore throat Respiratory: + cough, + shortness of breath Cardiovascular: Denies chest pain or LE edema. +palpitations Gastrointestinal: + abdominal pain, + vomiting, + diarrhea Genitourinary: +urine discoloration, no dysuria Musculoskeletal: + back pain Neurological: + headache, no paraesthesias or motor weakness Integumentary: Denies rash or other skin lesions Psychiatric: Denies SI/HI <Julita Mclean PA-C - Last Filed: 03/27/21 12:57> [facility] Past Medical History Medical History: Medical History (Updated 03/27/21 @ 11:50 by Julita Mclean PA-C) Diverticulosis Hypertension Kidney stones Mixed hyperlipidemia Obesity (BMI 30-39.9) PONV (postoperative nausea and vomiting) <Julita Mclean PA-C - Last Filed: 03/27/21 12:57> Surgical History Surgical History: Surgical History (Updated 03/27/21 @ 11:41 by Julita Mclean PA-C) H/O lithotripsy History of 2 sections History of cystoscopy History of dilation and curettage History of hysterectomy History of oophorectomy History of tonsillectomy <Julita Mclean PA-C - Last Filed: 03/27/21 12:57> Family History Family History: Family History Father Family history of lung cancer Family history of coronary artery disease Mother Family history of malignant neoplasm of breast in first degree relative Breast cancer Osteoporosis <Julita Mclean PA-C - Last Filed: 03/27/21 12:57> Social History Social History: So
[2021-03-27] MEDS: ACETAMINOPHEN 500 MG TABLET PO (16:08)
[2021-03-27 16:21] LABS: Add Urine Microscopic? YES; Appearance Urine Clear (Clear); Bacteria Urine Trace /hpf; Bilirubin Urine Negative (Negative); Blood Urine 3+ (Negative); Color Urine Yellow (Yellow); Glucose Urine UA Negative (Negative); Ketones Urine Negative (Negative); Leukocyte Esterase Ur Trace LEU/UL (Negative); Mucus Urine Rare /lpf; Nitrate Urine Negative (Negative); Protein Urine 1+ mg/dL (Negative); RBC Urine >75 /hpf (0-2); Specific Grav Ur 1.019 (1.001-1.035); Squamous Epithelial Cell Urine Occasional /hpf (Few); Urobilinogen Urine Negative mg/dL (<2.0)
--- NOTE | 2021-03-27 16:43 | PM.DS ---
DS: Admitting Diagnosis Discharge Date 03/27/21 Admitting Diagnosis covid, tachycardia DS: Discharge Diagnosis Discharge Diagnosis (1) COVID-19: Code(s): U07.1 - COVID-19 Status: Acute Assessment and Plan: Diagnosed with COVID on 03/24/21, however symptoms started on 03/18/21. No hypoxia at rest or with ambulatory trial done in ED last night. CTA shows multifocal peripheral patchy infiltrates including areas with a ground glass appearance consistent with inflammatory/infection including viral pneumonia such as COVID 19. No pulmonary artery filling defect to suggest pulmonary arterial thrombosis. No signs of sepsis, no leukocytosis, no fever throughout ER visit or current admission. (2) SOB (shortness of breath): Code(s): R06.02 - Shortness of breath Status: Acute Assessment and Plan: As above. Oxygen saturation consistently upwards of 95% on RA both at rest and with exertion. (3) Nausea and vomiting: Qualifiers: Vomiting type: unspecified Vomiting Intractability: non-intractable Qualified Code(s): R11.2 - Nausea with vomiting, unspecified Code(s): R11.2 - Nausea with vomiting, unspecified Status: Acute Assessment and Plan: Controlled with one time dose of IV zofran in the Emergency Department. She was able to eat breakfast this morning without nausea or vomiting. Per chart review patient has home prescription of Zofran ODT prn. (4) Tachycardia: Code(s): R00.0 - Tachycardia, unspecified Status: Acute Assessment and Plan: Patient was ultimately admitted for observation as her heart rate would jump up into the 120s with ambulation. I suspect this is secondary to current COVID infection and dehydration secondary to nausea/vomiting/diarrhea. Could also be related to rebound tachycardia as she has likely not had her metoprolol 200 mg QD due to vomiting. No tachycardia at rest. PE was ruled out by CTA. TSH was normal. EKG shows sinus rhythm with rate of 89 bpm. I also suspect that some of the tachycardia is due to obesity and deconditioning with a BMI of 38. Received 2L IVF during admission which overall seemed to improve her symptoms. (5) Dizziness: Code(s): R42 - Dizziness and giddiness Status: Acute Assessment and Plan: I suspect this is also related to her COVID 19 symptoms as she stated the dizziness began at the same time as the rest of her symptoms. Likely due to volume loss secondary to nausea, vomiting, diarrhea, and decreased PO intake. No paraesthesias or focal weakness. Nausea and vomiting has resolved. No other neurological complaints or focal deficits. (6) Headache: Qualifiers: Headache type: unspecified Headache chronicity pattern: acute headache Intractability: not intractable Qualified Code(s): R51.9 - Headache, unspecified Code(s): R51.9 - Headache, unspecified Status: Acute Assessment and Plan: See above, dizziness. Normal neurological exam. Blood pressure was minimally elevated around 140-150 systolic probably related to being off her anti-HTN due to her nausea and vomiting. Home medications were resumed. Further management of her Hypertension per PCP. Suspect source of headache is her current COVID infection as the headache started at the same time as her nasal congestion and cough. She received mild relief with fioricet. Provided strict return precautions should her headache worsen, or if she develops and neurological symtpoms. (7) Left leg pain: Code(s): M79.605 - Pain in left leg Status: Acute Assessment and Plan: Slightly elevated D-Dimer with complaint of mild left calf cramping. Bilateral venous doppler negative for DVT. Recommended Tylenol or Ibuprofen as needed for pain. PCP follow up if symptoms persist. (8) Left ureteral calculus: Code(s): N20.1 - Calculus of ureter Status: Acute Asses
== END 2021-03-27 17:33 | disposition home or self-care (01) ==
LOC: ANHED 03-27 00:06 → ANHIMU 03-27 03:52
PROVIDERS: Physician Assistant; Admitting Provider Internal Medicine; Emergency Provider Emergency Medicine; PCP Family Medicine; Visit Provider Internal Medicine
DX: U07.1 COVID-19 (principal); R06.02 Shortness of breath; R11.2 Nausea with vomiting, unspecified; M79.605 Pain in left leg; R00.0 Tachycardia, unspecified; R42 Dizziness and giddiness; R51.9 Headache, unspecified; I10 Essential (primary) hypertension; E78.2 Mixed hyperlipidemia; Z96.0 Presence of urogenital implants; Z87.442 Personal history of urinary calculi
CPT/HCPCS: 36415; 71045; 71275; 80048; 81001; 83615; 84443; 85025; 85380; 85610; 85730; 86140; 93005; 93970; 96361; 96374; 96375; 99285; A9270; G0378; J0131; J1885; J2405; J7030; Q9967

== ENCOUNTER 2021-04-03 13:13 | Outpatient (CLI) | payer BC, SELFPAY ==
--- NOTE | ~2021-04-03 | XR_ITS ---
EXAMINATION: XR abdomen/kub 1V DATE: 04/03/2021 13:34 INDICATION: Calculus of kidney. TECHNIQUE: A supine view of the abdomen on 2 radiographs was obtained. COMPARISON: Abdomen radiographs 03/03/2021, CT abdomen and pelvis 03/08/2021 FINDINGS: There are no dilated loops of bowel. There is a left internal ureteral stent in expected po sition. There are least 3 stones in right kidney measuring up to 3 mm. There are least 7 stones in le ft kidney measuring up to 6 mm. There are phleboliths in the pelvis. IMPRESSION: 1. Bilateral kidney stones. 2. Left internal ureteral stent in expected position. Reviewed, dictated and finalized at location A.
== END 2021-04-03 13:14 | disposition home or self-care (01) ==
LOC: ANHIMG 13:18
PROVIDERS: PCP Family Medicine; Visit Provider Urology
DX: N20.0 Calculus of kidney (principal); Z96.0 Presence of urogenital implants
CPT/HCPCS: 74018

== ENCOUNTER 2021-04-14 13:43 | Outpatient (CLI) | payer BC, SELFPAY ==
[2021-04-14 14:13] LABS: Amylase 50 U/L (30-110)
== END 2021-04-14 13:44 | disposition home or self-care (01) ==
LOC: ANHSURGERY 13:48
PROVIDERS: PCP Family Medicine; Visit Provider Surgery
DX: Z01.812 Encounter for preprocedural laboratory examination (principal); K80.10 Calculus of gallbladder with chronic cholecystitis without obstruction
CPT/HCPCS: 36415; 82150; 86850; 86900; 86901

== ENCOUNTER 2021-04-20 00:33 | Day surgery (SDC) | payer BC, SELFPAY ==
[2021-04-13 11:47] VITALS: BMI 38.7
--- NOTE | 2021-04-19 10:54 | WPDANESEPPF ---
Anes - Initial Pre Proc Eval Procedure: Operation Date: 04/20/21 14:15 Proposed Procedures p Laparoscopic Cholecystectomy - Carla Scanlon MD Date/Time: 04/19/21 10:54 Surgeon: Carla Scanlon MD Pre Op Diagnosis: chronic cholecystitis with stones Patient Data Age: 61 Gender: F Height: 1.68 m Weight: 108.86 kg Allergies Allergy/AdvReac Type Severity Reaction Status Date / Time codeine AdvReac Intermediate Nausea Verified 04/13/21 11:44 levofloxacin AdvReac Intermediate ACHILLES Verified 04/13/21 11:44 TENDON INJURY Home Medications Medication Instructions Recorded Confirmed Type acetaminophen 500 mg tablet 500 mg PO Q6H PRN 09/27/20 04/13/21 History tramadol 50 mg PO HS PRN 02/01/21 04/13/21 History metoprolol succinate 200 mg PO HS 03/01/21 04/13/21 History tizanidine 4 mg PO TID PRN 03/01/21 04/13/21 History atorvastatin 10 mg PO HS 03/09/21 04/13/21 History escitalopram oxalate 10 mg PO HS 03/09/21 04/13/21 History ondansetron HCl 4 mg tablet 4 mg PO Q8H PRN #20 tablet 03/22/21 04/13/21 Rx benazepril 10 mg tablet 10 mg PO HS #90 tablet 04/05/21 04/13/21 Rx gabapentin 300 mg capsule 300 mg PO HS #30 cap 04/05/21 04/13/21 Rx meloxicam 7.5 mg tablet 7.5 mg PO HS #90 tablet 04/05/21 04/13/21 Rx Patient hx anesthesia problems: post op nausea/vomiting Family hx anesthesia problems: none Results Review: All pre-operative results and documents have been reviewed as part of the pre-operative evaluation. [facility] Past Medical History Medical History Diverticulosis Hypertension Kidney stones Mixed hyperlipidemia Obesity (BMI 30-39.9) PONV (postoperative nausea and vomiting) Surgical History Surgical History H/O lithotripsy History of 2 sections History of cystoscopy History of dilation and curettage History of hysterectomy History of oophorectomy History of tonsillectomy Family History Family History Father Family history of lung cancer Family history of coronary artery disease Mother Family history of malignant neoplasm of breast in first degree relative Breast cancer Osteoporosis Social History Social History Smoking packs per day: 1 Smoking cigarettes per day: 20.0 Years smoked: 25 Smoking pack-years: 25.00 Smoking status: Former smoker Tobacco type: cigarettes Second hand tobacco smoke exposure: No Smoking end date: 06/24/09 Alcohol intake: never Substance use: never Substance use type: does not use Living arrangements: with family 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[employer] Gender identity (if verbalized by the patient): Female Spiritual care concerns: No Agree to blood products: Yes Anes - Eval Final PreProcedure Day of Procedure 04/19/21 10:54 Patient weight: obese Heart: regular rate and rhythm Lungs: clear to auscultation and normal air movement Airway: Mallampati scale class II Neurological: alert and oriented Last oral intake: >/= 8 hours ASA classification: III Emergent: no Anesthetic plan: proceed Anesthesia type and monitoring: general ETT and standard monitoring Results Review: All pre-operative results and documents have been reviewed as part of the pre-operative evaluation. Informed Consent: The patient's anesthetic plan and its attendant risks and benefits were discussed with the patient/family/POA. Questions were solicited and answers provided to the satisfaction of the patient/family/POA.
[2021-04-20] VITALS (12 sets, daily range): BP systolic 125–185; BP diastolic 64–90; PULSE 55–68; RESP 16–20; TEMP 36.5–36.8; O2SAT 94–98
--- NOTE | 2021-04-20 12:41 | WPDHPUPDATE1 ---
History and Physical Update Update Date/Time: 04/20/21 12:41 History and Physical has been reviewed, including an updated exam of the patient. There are NO changes in the patient's condition. Risks, benefits, and alternatives have been discussed and questions answered. Patient agrees to proceed with procedure.
[2021-04-20] MEDS: ACETAMINOPHEN 500 MG TABLET 1000 MG PO (12:56)
[2021-04-20] MEDS: LACTATED RINGERS 1,000 ML 30 ML IV CONT ×2 (13:05→15:31)
[2021-04-20] MEDS: KETOROLAC 15 MG/ML VIAL (*BKC) IV PUSH (13:08)
[2021-04-20] MEDS: ceFAZolin 2 GM/D5W 50 ML 2 GM/50 ML BAG IVPB (14:29)
[2021-04-20] MEDS: BUPIVACAINE HCL 0.5% PF 30 ML VIAL INFILTRATE (14:33)
--- NOTE | 2021-04-20 15:25 | W.PM.PROC2 ---
Procedure Note - Detailed Date of Procedure 04/20/21 Pre-op Diagnosis chronic cholecystitis with stones Post-op Diagnosis same Procedure Performed Laparoscopic cholecystectomy Surgeon Carla Scanlon MD Anesthesia general Indications 61 y/o F complaining of postprandial right upper quadrant, epigastric abdominal pain associated with nausea and bloating. Workup including imaging significant for chronic cholecystitis, cholelithiasis. Findings Cholecystitis with cholelithiasis Description of Procedure The patient was taken to the operating room placed in the supine position. After adequate induction of general anesthesia, the patient was prepped and draped in normal sterile fashion. A time-out was then performed to verify the patient's identity as well as the procedure being performed. I then made a 5 mm incision in the infraumbilical region. Through this, a Veress needle was placed into the peritoneal cavity and CO2 gas was then insufflated. After adequate pneumoperitoneum was achieved, the Veress needle was removed and a 5 mm optiview trocar was placed through this incision under direct visualization. I then placed the laparoscope through this trocar site and under direct visualization placed a further 12 mm subxiphoid port as well as 2 additional 5 mm ports in the right upper abdomen. The gallbladder was then identified and was noted to be moderately inflamed, distended, and full of gallstones. The gallbladder was noted to be intrahepatic. I was able to place a grasper at the dome of the gallbladder and this was retracted anterior and cephalad up over the liver. A 2nd retractor was then placed at the infundibulum and retracted laterally, this allowed visualization of the triangle of Calot. I then was able to visualize the cystic duct in its entirety from its proximal insertion into the gallbladder, to its distal junction with the common hepatic/common bile duct junction. At this point, I carefully skeletonized the proximal cystic duct with the [place] dissector. I then clipped and transected the proximal cystic duct. Next I visualized the cystic artery. Again the artery was skeletonized, clipped, and transected. I then used the Bovie cautery to take down the peritoneal attachments of the gallbladder off the liver bed. Once the gallbladder specimen was completely detached, an endo-pouch was placed through the 12 mm port site. I then placed the gallbladder specimen into the Endo pouch and removed the endo-pouch from the 12 mm port site. The specimen will now be sent to pathology for further review. I then copiously irrigated the right upper quadrant. Some mild oozing was noted in the liver bed and this was controlled with the bovie cautery. I then placed some hemostatic powder in the liver bed. Hemostasis was noted in the liver bed, the clips were noted to be in good position on both the cystic duct stump and the cystic artery stump. No other pathology was noted in the right upper quadrant. I then moved the laparoscope to the subxiphoid port. No iatrogenic injury or other pathology was noted in the lower abdomen. I then closed the 12 mm trocar site under direct visualization using the Tyler cone and 0 Vicryl suture. At this point, the abdomen was desufflated and all ports removed. All port sites were then closed with 4.O Monocryl subcuticular sutures. Dermabond was placed on each incision. The patient tolerated the procedure well, was extubated in the operating room postoperative and will be transferred to the recovery room in stable condition Estimated Blood Loss 10 Drains No Packing No Pathology yes Complications No immediate complications Condition stable Disposition PACU
[2021-04-20] MEDS: ONDANSETRON INJ 4 MG/2 ML VIAL IV PUSH (16:07)
[2021-04-20] MEDS: fentaNYL CITRATE INJ (*CRX) 100 MCG/2 ML VIAL 25 MCG IV PUSH ×8 (16:09→17:20)
--- NOTE | 2021-04-20 16:11 | SUR.PHASEI ---
1607; PT AWAKE, C/O PAIN 10/10 AND NAUSEA. BEGAN TO MOAN. 1610; PT SAT UPRIGHT ON STRETCHER. DRY HEAVES. MOANING IN PAIN. ZOFRAN AND FENTANYL GIVEN IV.
[2021-04-20] MEDS: SCOPOLAMINE 1.5 MG PATCH TRANSDERM (16:33)
[2021-04-20] MEDS: diphenhydrAMINE HCl INJ 50 MG/ML VIAL 12.5 MG IV PUSH ×2 (16:34→17:47)
--- NOTE | 2021-04-20 16:37 | SUR.PHASEI ---
163; PT CONTINUES TO DRY HEAVE. C/O PAIN TO ABDOMEN AT 9/[address] ONOFRE ORDERED NAUSEA MEDS. O2 DECREASED TO 2L NC. RESP EVEN UNLABORED.
--- NOTE | 2021-04-20 16:55 | SUR.PHASEI ---
GIVING PT SOME ICE CHIPS, C/O MOUTH VERY DRY. PT CONTINUES TO DRY HEAVE. NOT QUITE HARD PREVIOUSLY.
--- NOTE | 2021-04-20 17:03 | SUR.PHASEI ---
DECREASED NC 02 TO 1L
--- NOTE | 2021-04-20 17:23 | SUR.PHASEI ---
PT AWAKE, DROWSY, STATES NAUSEA IMPROVED. NO LONGER DRY HEAVING. EATING ICE CHIPS. READY TO SIT IN RECLINER.
[2021-04-20] MEDS: oxyCODONE HCL (*CRX) 5 MG TAB IR PO (17:49)
== END 2021-04-20 18:40 | disposition home or self-care (01) ==
PROVIDERS: PCP Family Medicine; Visit Provider Surgery
PROC: 0FT44ZZ Resection of Gallbladder, Percutaneous Endoscopic Approach (ICD-10-PCS; CPT 47562; principal; 2021-04-20 14:15)
DX: K80.10 Calculus of gallbladder with chronic cholecystitis without obstruction (principal); I10 Essential (primary) hypertension; E78.2 Mixed hyperlipidemia; E66.9 Obesity, unspecified; Z68.39 Body mass index [BMI] 39.0-39.9, adult; F17.210 Nicotine dependence, cigarettes, uncomplicated
CPT/HCPCS: 47562; 36415; 88304; A9270; J0690; J1100; J1200; J1885; J2405; J2704; J2710; J3010; J7030; J7120

== ENCOUNTER 2021-12-21 16:46 | Outpatient (CLI) | payer BC, SELFPAY ==
--- NOTE | ~2021-12-21 | DEXA_ITS ---
Bone Density Report Name: FARIHA EMANUEL Age: 61 Sex: Female Ethnicity: White Date of : 1960 Indication: postmenopausal; screening for osteoporosis; height loss; hysterectomy; Referring Provider: KAITLYN PIZANO Study: Bone densitometry was performed. Exam Date: December 21, 2021 Accession number: [id number] Bone Density: Region BMD T-score Z-score Classification AP Spine(L1-L4) 0.847 -1.8 -0.3 Osteopenia Femoral Neck (Left) 0.652 -1.8 -0.5 Osteopenia Total Hip (Left) 0.855 -0.7 0.3 Normal Femoral Neck (Right) 0.562 -2.6 -1.3 Osteoporosis Total Hip (Right) 0.836 -0.9 0.1 Normal Total Hip Mean 0.845 -0.8 0.2 Normal World Health Organization criteria for BMD impression classify patients as: Normal (T-score at or above -1.0), Osteopenia (T-score between -1.0 and -2.5), or Osteoporosis (T-score at or below -2.5). 10-year Fracture Risk: FRAX not reported because: Some T-score for Spine Total or Hip Total or Femoral Neck at or below -2.5 Clinical Information Provided by Patient: Has the following medical conditions: Hysterectomy Patient maximum height was 67 Menopause Age: 32 No regular weight bearing exercise Drinks caffeinated beverages Onset of menses at age 14 Number of children 2 Impression: The patient has osteoporosis, based on the Right Femoral Neck T-score. Discussion: INCREASED RISK OF FRACTURE. BONE DENSITY IS UNDESIRABLY LOW AT ONE OR MORE SKELETAL SITES, CONSISTENT WITH POSTMENOPAUSAL OSTEOPOROSIS. This patient's lowest T-score meets the World Health Organization's (WHO) criteria for osteoporosis at one or more sites (T-score -2.5 or below). In untreated patients, the risk of osteoporotic fracture increases approximately two-fold for each 1.0 SD decrease in T-score. Low bone density is not the only risk factor for fracture; also consider factors such as patient's age, frailty or poor health, risk of falling, risk of injury, previous osteoporotic fracture, family history of osteoporosis, cigarette smoking, low body weight, etc. Not everyone with low bone mineral density has osteoporosis; osteomalacia and other metabolic bone disorders should also be considered. Patients who have osteoporosis should be evaluated for specific diseases and conditions (secondary causes) that may cause or contribute to bone loss. The [place] [employer]ocrinologists (AACE) and National Osteoporosis Foundation (NOF) recommend pharmacologic intervention for all postmenopausal women whose T-score is in this range. The patient should follow a healthful lifestyle (good nutrition with adequate calcium and vitamin D, and appropriate weight-bearing exercise). Follow-Up: Consider a repeat BMD and Vertebral Fracture Assessment (VFA) exam in 2 years or sooner if medically necessary, to reasse
== END 2021-12-21 16:47 | disposition home or self-care (01) ==
PROVIDERS: PCP Family Medicine; Visit Provider Nurse Practitioner Family
DX: Z13.820 Encounter for screening for osteoporosis (principal); M85.88 Other specified disorders of bone density and structure, other site; M85.851 Other specified disorders of bone density and structure, right thigh; M85.852 Other specified disorders of bone density and structure, left thigh; Z78.0 Asymptomatic menopausal state; I10 Essential (primary) hypertension; E78.2 Mixed hyperlipidemia; M51.36 Other intervertebral disc degeneration, lumbar region; R73.9 Hyperglycemia, unspecified
CPT/HCPCS: 77080

== ENCOUNTER 2022-01-22 12:58 | Outpatient (CLI) | payer BC, SELFPAY ==
--- NOTE | ~2022-01-22 | XR_ITS ---
XR abdomen/kub 1V 01/22/2022 13:15 Indication: Left renal stones Procedure: KUB Comparison: Comparison to multiple prior studies sequentially, with oldest reviewed study dated 04/03 Findings: there are bilateral renal stones, largest in the lower pole of the left kidney measuring ap proximately 9 mm greatest dimension. There are cholecystectomy clips. There are calcified granulomas of the spleen. Interval removal of left internal ureteral stent. There are pelvic phleboliths. Impression: 1: Bilateral nephrolithiasis. Reviewed, dictated and finalized at location A. Impression: 1: Bilateral nephrolithiasis.
== END 2022-01-22 12:59 | disposition home or self-care (01) ==
PROVIDERS: PCP Family Medicine; Visit Provider Urology
DX: N20.0 Calculus of kidney (principal)
CPT/HCPCS: 74018

== ENCOUNTER 2022-01-25 07:53 | Outpatient (CLI) | payer BC, SELFPAY ==
--- NOTE | ~2022-01-25 | CT_ITS ---
EXAMINATION: CT abdomen pelvis wo con DATE: 01/25/2022 08:24 INDICATION: Left flank pain. Calculus of kidney. TECHNIQUE: Computed tomography (CT) of the abdomen and pelvis was performed without intravenous contr ast. Automated exposure control and iterative reconstruction technique were employed. The dose-length product was 753.58 mGy-cm. COMPARISON: CT abdomen and pelvis 03/08/2021 FINDINGS: The visualized portions of the lung bases demonstrate mild atelectasis. A calcified right l deep nodule is consistent with old granulomatous disease. No pleural effusion. The heart size is shine l. There are coronary artery calcifications. No pericardial effusion. There is diffuse hepatic steato sis. Calcifications in the liver and spleen are consistent with old granulomatous disease. There are changes of cholecystectomy. The pancreas is normal. There is a 14 mm mass in right adrenal gland frankie uring low attenuation, consistent with an adenoma. There is chronic thickening of left adrenal gland, likely benign. There is cortical thinning of the kidneys. There are eight stones in right kidney ron suring up to 4 mm. There are approximately eight stones in left kidney measuring up to 7 mm. There is diverticulosis of the colon without evidence of diverticulitis. There are no dilated loops of bowel. The appendix is normal. There are no pathologically enlarged lymph nodes. There is no free intraperi toneal fluid. There is lumbar levoscoliosis. There is mild thoracolumbar spondylosis. IMPRESSION: 1. Bilateral nonobstructing kidney stones. Reviewed, dictated and finalized at location A.
== END 2022-01-25 07:54 | disposition home or self-care (01) ==
LOC: ANHIMG 07:57
PROVIDERS: PCP Family Medicine; Visit Provider Urology
DX: N20.0 Calculus of kidney (principal); I25.10 Atherosclerotic heart disease of native coronary artery without angina pectoris; K76.0 Fatty (change of) liver, not elsewhere classified; M47.815 Spondylosis without myelopathy or radiculopathy, thoracolumbar region
CPT/HCPCS: 74176